=== PATIENT | female | born 1960 | race Caucasian/White ===

== ENCOUNTER → 2020-05-09 14:27 | Outpatient (BNVA) | payer MEDICAID, SELFPAY | PROVIDERS: PCP Nurse Practitioner Family; Visit Provider Physician Assistant | DX: A04.8 Other specified bacterial intestinal infections (principal) | CPT/HCPCS: 99213 ==

== ENCOUNTER 2020-05-24 12:31 | Outpatient (REF) | payer MEDICAID, SELFPAY ==
--- NOTE | 2020-05-24 13:08 | XR_ITS ---
EXAMINATION: XR WRIST, LEFT CLINICAL INFORMATION: Pain left wrist. COMPARISON: None TECHNIQUE: Single lateral view of the left wrist. FINDINGS: There is old ulnar styloid process fracture. There is no dislocation or subluxation seen involving the left wrist. The soft tissues are normal. XR/XR wrist LT 2V IMPRESSION: Old ulnar styloid process fracture. No acute dislocation or subluxation seen.
== END 2020-05-24 12:32 | disposition home or self-care (01) ==
LOC: HO.HOSX 12:31
PROVIDERS: PCP Nurse Practitioner Family; Visit Provider Orthopaedic Surgery
DX: M65.832 Other synovitis and tenosynovitis, left forearm (principal); M25.532 Pain in left wrist
CPT/HCPCS: 20551; 73100; 99212; J1100

== ENCOUNTER 2020-09-12 12:27 | Outpatient (REF) | payer MEDICAID, SELFPAY ==
--- NOTE | ~2020-09-12 | MM_ITS ---
EXAMINATION: MM SCREENING DIGITAL BREAST TOMOSYNTHESIS, BILATERAL CLINICAL INFORMATION: Screening. Asymptomatic. Family history breast cancer, sister. Prior outside mammography from [place], [place] currently unavailable. The lifetime risk of breast cancer based on the Tyrer-Cuzick Model is 20.1%. COMPARISON: None. TECHNIQUE: Digital breast tomosynthesis is performed in both the craniocaudal and mediolateral oblique views along with computer-aided detection (CAD). Synthesized 2D images are generated from the tomosynthesis. FINDINGS: The breasts are heterogeneously dense, which may obscure small masses (ACR BI-RADS breast composition Category c). There is no significant mass or architectural abnormality. Innumerable bilateral punctate round calcifications are distributed throughout both breasts, slightly greater in number on the right. The axilla are unremarkable. The skin contours are smooth. Radiology department staff will attempt to retrieve prior outside mammography to allow for comparison in an addendum report. MM/MM tomosynthesis screening BI IMPRESSION: No mammographic evidence of malignancy. ASSESSMENT: BI-RADS 0: Incomplete - pending prior outside mammography for comparison RECOMMENDATION: 1. Radiology department staff will attempt to retrieve outside prior exam(s) to allow for comparison in an addendum report. 2. The lifetime risk of breast cancer based on the Tyrer-Cuzick Model is 20.1%. Additional annual adjunct screening with breast MRI may be of benefit in women with a risk score of 20% or greater. This patient's information was entered into a reminder system with a target due date for their next mammogram.
== END 2020-09-12 12:28 | disposition home or self-care (01) ==
LOC: HO.MAMMO 12:27
PROVIDERS: PCP Nurse Practitioner Family; Visit Provider Nurse Practitioner Family
DX: Z12.31 Encounter for screening mammogram for malignant neoplasm of breast (principal)
CPT/HCPCS: 77063; 77067

== ENCOUNTER 2020-12-09 11:51 | Emergency (ER) | payer MEDICAID, SELFPAY ==
[2020-12-09 14:04] VITALS: BP 130/88; PULSE 87; RESP 20; TEMP 36.6; O2SAT 100; BMI 25.7
--- NOTE | 2020-12-09 14:06 | ED_ITS ---
HPI - General Adult General Chief complaint: ETOH/Substance Use Stated complaint: withdrawal Time Seen by Provider: 12/09/20 14:06 Source: patient Mode of arrival: ambulatory Limitations: no limitations History of Present Illness HPI narrative: 60 y/o female with history of substance abuse on Suboxone x10 years with recent relapse 4 days ago presenting with restless legs. She states her legs were moving so much last night she could not sleep at all. She has not used heroin. She tried taking a half dose of Subxone yesterday but felt worse. She did not take her Soboxone today. She reports some muscle cramping in her legs and feeling like she can't stop moving them. She has no swelling, no injury, no skin changes. No fever Related Data Home Medications Medication Instructions Recorded Confirmed abacavir 600 mg-dolutegravir 50 1 tab PO DAILY 05/09/20 05/09/20 mg-lamivudine 300 mg tablet levothyroxine 150 mcg tablet 150 mcg PO DAILY 05/09/20 05/09/20 lisinopril 20 mg tablet 20 mg PO DAILY 05/09/20 05/09/20 metformin 500 mg tablet 500 mg PO DAILY 05/09/20 05/09/20 simvastatin 40 mg tablet 40 mg PO DAILY 05/09/20 05/09/20 Previous Rx's Medication Instructions Recorded arm brace #1 ea 05/31/20 diphenhydramine HCl [Benadryl 50 mg PO Q6H PRN #14 tab 12/09/20 Allergy] Allergies Allergy/AdvReac Type Severity Reaction Status Date / Time No Known Allergies Allergy Verified 12/09/20 14:04 Review of Systems Review of Systems: Constitutional: No Fever, No Chills ENT/Mouth: No sore throat, No Rhinorrhea, No Swallowing Difficulty Cardiovascular: No Chest Pain, No SOB Respiratory: No Cough, No Sputum Gastrointestinal: No Nausea, No Vomiting, No Diarrhea, No abdominal Pain Musculoskeletal: No joint pain, No Myalgias Skin: No Skin Lesions, No rash Neuro: No Weakness, No Numbness, No Dizziness, No Headache Psych: + Anxiety/Panic, + Depression Heme/Lymph: No Bruising, No Lymphadenopathy Endocrine: No Polyuria, No Polydipsia PMFSH Past Medical History Attestation statement: The following information was validated with the patient. Medical History Diabetes Dyslipidemia H. pylori infection HIV (human immunodeficiency virus infection) HTN (hypertension) Family History Family History (Updated 05/09/20 @ 14:03 by Mirela Aguilar PA-C) Brother No problems noted. Social History Social History (Updated 05/24/20 @ 12:38 by Jess Camara CMA) Patient : No Current occupational status: unemployed Current occupation: Right Handed Physical Exam Vital Signs: Vital Signs: Last Vital Signs Temp 97.9 F 12/09/20 14:04 Pulse 87 12/09/20 14:04 Resp 20 12/09/20 14:04 BP 130/88 12/09/20 14:04 Pulse Ox 100 12/09/20 14:04 Body Mass Index 25.7 Appearance: Alert. Oriented X3. No acute distress. Eyes: Pupils equal, round and reactive to light. ENT: Pharynx normal. Neck: Normal inspection. Neck supple. CVS: Normal heart rate and rhythm. Pulses normal. Respiratory: No respiratory distress. Breath sounds normal. Abdomen: Soft and nontender. +BS x4 Skin: Skin warm and dry. Normal skin color. Normal skin turgor. No rashes. Extremities: No lower extremity edema. No calf tenderness. No erythema, no skin changes. Neuro: Oriented X 3. No motor deficit. No sensory deficit. Ambulates with steady gait. Course Course Course Narrative: 60 y/o female with history of DM, HTN, substance abuse on Suboxone x10 years and recent relapse 4 days ago (use 1 bag) presenting with LE jumping sensation and cramping. Could not sleep due to the movement in her legs. Tried to take Suboxone yesterday but got sick. Did not take today. Will ge t labs to r/o electrolyte abnormalities. Reevaluation(s) Reevaluation #1: Labs normal. Patient encouraged to take her Suboxone at home and follow up with her PCP. Declining need for detox saying she just used once and does not plan to use again. Asking for Rx for benadryl for sleep and restless legs. Stable for discharge. Medical Decision Making Lab Data Result diagrams: 12/09/20 15:37 12/09/20 15:37 Labs: Lab Results 12/09/20 12/09/20 Range/Units 15:37 15:37 WBC 8.8 (4.8-10.8) X10*3/uL RBC 3.95 L (4.20-5.50) X10*6/uL Hgb 13.4 (12.0-16.0) g/dl Hct 39.5 (37-47) % MCV 100.0 H (80-98) fL MCH 33.9 H (27.0-33.0) pg MCHC 33.9 (31.0-35.0) g/dl RDW 14.4 (11.0-16.0) % Plt Count 223 (160-400) X10*3/uL MPV 10.3 (9.4-12.3) fL Immature Gran % (Auto) 0.8 H (0.0-0.4) % Neut % (Auto) 56.5 (45-73) % Lymph % (Auto) 32.8 (20-40) % [place] % (Auto) 6.7 (2-11) % Eos % (Auto) 2.4 (0-4) % Baso % (Auto) 0.8 (0-2) % Lymph # (Auto) 2.9 (1.2-4.9) X10*3/uL [place] # (Auto) 0.6 (0.1-1.2) X10*3/uL Eos # (Auto) 0.2 (0.0-0.4) X10*3/uL Baso # (Auto) 0.1 (0.0-0.2) X10*3/uL Abs Immat Gran (auto) 0.07 H (0.00-0.03) X10*3/uL Absolute Neuts (auto) 5.0 (2.0-8.3) X10*3/uL Absolute Nucleated RBC 0.000 (0.0-0.012) X10*3/uL Nucleated RBC % (auto) 0.0 (0.0-0.2) /100WBC Sodium 141 (135-145) mmol/L Potassium 4.0 (3.3-5.1) mmol/L Chloride 108 (96-108) mmol/L Carbon Dioxide 25 (22-29) mmol/L Anion Gap 12 (12-20) BUN 9 (9-16) mg/dL Creatinine 0.99 (0.5-1.4) mg/dL Estim Creat Clear Calc 50.2 Estimated GFR 57 Random Glucose 98 (60-115) mg/dL Calcium 9.1 (8.4-10.2) mg/dL Magnesium 2.4 (1.6-2.6) mg/dL TSH 52.59 H (0.32-4.0) uIU/mL Critical Care Time Critical Care Time Critical Care Time: No Discharge Plan Discharge Clinical Impression: Restless legs Patient Disposition: Home, Self-Care Instructions: Narcotic Withdrawal (ED) Additional Instructions: Your lab workup today was normal. Recommend going home and taking your Suboxone HARSHAL. Rest and stay hydrated. Restless legs can be a symptom of opiate withdrawal. Follow up with your doctor this week. Take Benadryl as needed for sleep. Prescriptions: New diphenhydramine HCl [Benadryl Allergy] 25 mg tablet 50 mg PO Q6H PRN (Reason: allergy symptoms) Qty: 14 RF: 0 No Action lisinopril 20 mg tablet 20 mg PO DAILY RF: 0 metformin 500 mg tablet 500 mg PO DAILY RF: 0 simvastatin 40 mg tablet 40 mg PO DAILY RF: 0 Triumeq 600-50-300 mg tablet 1 tab PO DAILY RF: 0 levothyroxine 150 mcg tablet 150 mcg PO DAILY RF: 0 (DME) Wrist Brace Misc See Rx Instructions .ROUTE .MEDSUPPLY Qty: 1 RF: 0
[2020-12-09 15:44] LABS: Basophils Absolute Auto 0.1 X10*3/uL (0.0-0.2); Basophils Percent Auto 0.8 % (0-2); Eosinophils Absolute Auto 0.2 X10*3/uL (0.0-0.4); Eosinophils Percent Auto 2.4 % (0-4); Hematocrit 39.5 % (37-47); Hemoglobin 13.4 g/dl (12.0-16.0); Imm Gran Abs Auto 0.07 X10*3/uL (0.00-0.03); Imm Gran Pct Auto 0.8 % (0.0-0.4); Lymphocytes Absolute Auto 2.9 X10*3/uL (1.2-4.9); Lymphocytes Percent Auto 32.8 % (20-40); MANUAL DIFF FLAG NO; Mean Corpuscular HGB Conc 33.9 g/dl (31.0-35.0); Mean Corpuscular Hemoglobin 33.9 pg (27.0-33.0); Mean Platelet Volume 10.3 fL (9.4-12.3); Monocytes Absolute Auto 0.6 X10*3/uL (0.1-1.2); Monocytes Percent Auto 6.7 % (2-11); Neutrophils Percent Auto 56.5 % (45-73); Platelet Count 223 X10*3/uL (160-400); Red Blood Count 3.95 X10*6/uL (4.20-5.50); Red Cell Distribution Width 14.4 % (11.0-16.0); White Blood Count 8.8 X10*3/uL (4.8-10.8)
[2020-12-09 16:10] LABS: Anion Gap 12 (12-20); Blood Urea Nitrogen 9 mg/dL (9-16); Calcium 9.1 mg/dL (8.4-10.2); Carbon Dioxide 25 mmol/L (22-29); Chloride 108 mmol/L (96-108); Creatinine Clr Calc Pharmacy 50.2; Estimated Glomerular Filt Rate 57; Glucose Random 98 mg/dL (60-115); Magnesium 2.4 mg/dL (1.6-2.6); Sodium 141 mmol/L (135-145)
[2020-12-09 16:30] LABS: TSH reflex Free T4 52.59 uIU/mL (0.32-4.0)
[2020-12-09 17:04] LABS: Free T4 (Free Thyroxine) < 0.40 ng/dL (0.71-1.85)
--- NOTE | 2020-12-09 19:12 | PC.NURSE ---
GLYNN LONG, STATING THAT PATIENT ELOPED FROM EMERGENCY DEPARTMENT
== END 2020-12-09 19:12 | disposition left against medical advice (07) ==
LOC: HO.ED 19:10
PROVIDERS: Physician Assistant; Emergency Provider Emergency Medicine; PCP Nurse Practitioner Family
DX: F10.139 Alcohol abuse with withdrawal, unspecified (principal); G25.81 Restless legs syndrome; Z79.899 Other long term (current) drug therapy
CPT/HCPCS: 36415; 80048; 83735; 84439; 84443; 85025; 99282

== ENCOUNTER 2021-03-29 16:34 | Emergency (ER) | payer MEDICAID, SELFPAY ==
[2021-03-29 17:11] VITALS: BP 148/77; PULSE 80; RESP 16; TEMP 36.6; O2SAT 98; BMI 27.9
--- NOTE | 2021-03-29 19:48 | ED.OVERDOSE ---
HPI - Overdose General Chief Complaint: Body Fluid Exposure Stated Complaint: detox Source: patient Mode of arrival: ambulatory Limitations: no limitations History of Present Illness HPI Narrative: 60-year-old female presents for heroin detox. Stated that she has been sober for 14 years and had a relapse. She is very remorseful and is looking for assistance. Context: Accidental Overdose: wanted to get high Treatments Prior to Arrival: none Related Data Home Medications Medication Instructions Recorded Confirmed abacavir 600 mg-dolutegravir 50 1 tab PO DAILY 05/09/20 05/09/20 mg-lamivudine 300 mg tablet (Triumeq) levothyroxine 150 mcg tablet 150 mcg PO DAILY 05/09/20 05/09/20 lisinopril 20 mg tablet 20 mg PO DAILY 05/09/20 05/09/20 metformin 500 mg tablet 500 mg PO DAILY 05/09/20 05/09/20 simvastatin 40 mg tablet 40 mg PO DAILY 05/09/20 05/09/20 Previous Rx's Medication Instructions Recorded arm brace (Wrist Brace) #1 ea 05/31/20 diphenhydramine HCl 25 mg tablet 50 mg PO Q6H PRN #14 tab 12/09/20 (Benadryl Allergy) Allergies Allergy/AdvReac Type Severity Reaction Status Date / Time No Known Allergies Allergy Verified 12/09/20 14:04 Review of Systems Review of Systems: Constitutional: No Fever, No Chills ENT/Mouth: No sore throat, No Rhinorrhea Eyes: No Eye Pain, No Swelling, No Redness Cardiovascular: No Chest Pain, No SOB Respiratory: No Cough, No Sputum Gastrointestinal: No Nausea, No Vomiting, No Diarrhea, No abdominal Pain Genitourinary: No Dysuria, No Hematuria Musculoskeletal: No joint pain, No Myalgias, No Joint Swelling Skin: No Skin Lesions, No rash Neuro: No Weakness, No Numbness, No Loss of Consciousness, No Dizziness, No Headache Psych: Positive heroin relapse, Positive Anxiety, positive Depression, No SI/HI/AH/VH Heme/Lymph: No Bruising, No Bleeding,No Lymphadenopathy Endocrine: No Polyuria, No Polydipsia Yes all other systems are reviewed and are negative PMFSH Past Medical History Attestation statement: The following information was validated with the patient. Source: old records reviewed Medical History Diabetes Dyslipidemia H. pylori infection HIV (human immunodeficiency virus infection) HTN (hypertension) Family History Family History Brother No problems noted. Social History Social History Advance Directives: No Current occupational status: unemployed Current occupation: Right Handed Physical Exam Vital Signs: Vital Signs: Last Vital Signs Temp 98.9 F 03/29/21 21:04 Pulse 77 03/29/21 21:04 Resp 16 03/29/21 21:04 BP 140/85 H 03/29/21 21:04 Pulse Ox 98 03/29/21 21:04 Body Mass Index 27.9 Appearance: Alert. Oriented X3. No acute distress. Eyes: Pupils equal, round and reactive to light. ENT: Pharynx normal. Neck: Normal inspection. Neck supple. CVS: Normal heart rate and rhythm. Pulses normal. Respiratory: No respiratory distress. Breath sounds normal. Abdomen: Soft and nontender. Skin: Skin warm and dry. Normal skin color. Normal skin turgor. Extremities: No lower extremity edema. Gait well-balanced well coordinated. Neuro: No motor deficit. No sensory deficit. Cranial nerves 2-12 intact. Course Course Course Narrative: 60-year-old female relapse on heroin after 14 years of sobriety. Is requesting detox care team consult pending. Care team consult complete, plan is for detox in the morning. Patient verbalized understanding of and agrees to plan. MDM - Overdose MDM Narrative Medical decision making narrative: Heroin abuse, requesting detox Medical Records Attestation: I reviewed the patient's medical records. Discharge Plan Discharge Clinical Impression: Heroin abuse Patient Disposition: Home, Self-Care Instructions: Opioid Use Disorder (ED) Additional Instructions: Thank you for choosing detox. Thank you for choosing this emergency department for evaluation. Please follow-up with primary care physician as needed. Return to the emergency department for any new, concerning, or worsening symptoms. Prescriptions: No Action diphenhydramine HCl [Benadryl Allergy] 25 mg tablet 50 mg PO Q6H PRN (Reason: allergy symptoms) Qty: 14 RF: 0 lisinopril 20 mg tablet 20 mg PO DAILY RF: 0 metformin 500 mg tablet 500 mg PO DAILY RF: 0 simvastatin 40 mg tablet 40 mg PO DAILY RF: 0 Triumeq 600-50-300 mg tablet 1 tab PO DAILY RF: 0 levothyroxine 150 mcg tablet 150 mcg PO DAILY RF: 0 (DME) Wrist Brace Misc See Rx Instructions .ROUTE .MEDSUPPLY Qty: 1 RF: 0
--- NOTE | 2021-03-29 20:54 | MHC.CARE ---
CARE Team was consulted to meet with patient about detox options. CARE Team met with the patient with Mario as the breeding manager and the patient explained that she had been clean for more than 10 years before her recent relapse and expressed her determination to get help. Patient said that she was scared to detox at home by herself and felt she would be more successful if she were in a detox facility. CARE Team informed her that [facility] and that tomorrow the recovery team would be able to help connect her to detox resources. After speaking with the ED providers, it was determined that the patient could stay in the ED to meet with the recovery team.
[2021-03-29 21:04] VITALS: BP 140/85; PULSE 77; RESP 16; TEMP 37.2; O2SAT 98
[2021-03-30 03:04] VITALS: RESP 16
[2021-03-30 06:22] VITALS: RESP 16
--- NOTE | 2021-03-30 08:37 | PC.NURSE ---
sean to bedside to discuss detox- pt breakfast ordered
[2021-03-30 08:47] LABS: Glucose, Whole Blood 105 mg/dL (60-115)
--- NOTE | 2021-03-30 08:49 | MHC.RECOVSUP ---
Recovery Support note: Patient is a 60 year old [place] speaking female who presented to [facility] on 03/29 seeking detox. Patient reports relapsing on heroin and a desire to get into treatment. This health technical writer met with patient on 03/30 to discuss her substance use and treatment options. Patient reports she last used on 03/29 and that she is feeling withdrawal symptoms at this time. Patient reports she has never been to detox. Patient reports she does not want to go far for treatment. This health technical writer will assist patient in conducting a local ATS bedsearch. Discussed case with patient's RN.
--- NOTE | 2021-03-30 10:17 | MHC.RECOVSUP ---
Recovery Support note: Patient has been referred to [facility] and is being reviewed for possible admission. Patient reports she is fully vaccinated for COVID. Patient reports she relapsed in December and has been using 15 bags of heroin a day, nasally. Discussed case with patient's RN and ED provider.
[2021-03-30 10:41] VITALS: BP 140/85; PULSE 77
[2021-03-30] MEDS: Levothyroxine Sodium 75 MCG TABLET PO (10:41)
[2021-03-30] MEDS: lisinopriL 10 MG TABLET PO (10:41)
[2021-03-30] MEDS: Cholecalciferol (Vitamin D3) 25 MCG TABLET PO (10:41)
[2021-03-30] MEDS: Famotidine 20 MG TABLET PO (10:41)
[2021-03-30 11:10] LABS: COVID-19 Test Negative (Negative); IDNOW Serial# 9DD0AD1C
--- NOTE | 2021-03-30 11:20 | MHC.RECOVSUP ---
Recovery Support note: Patient has been accepted to [facility] for a 1500 admission time. Patient is requesting that [facility] assist with transportation. Patient medication list has been verified and faxed to [facility]. Patient confirms that she has all of her medications with her at this time. Patient is COVID negative and result has been faxed to [facility]. Discussed with patient that [facility] does not have an automotive parts interpreter today and patient reports that this is not a problem and that she will be able to talk in Green[place]ic.
--- NOTE | 2021-03-30 13:24 | PC.NURSE ---
pt eating lunch
--- NOTE | 2021-03-30 13:28 | PC.NURSE ---
per charge pt left er
== END 2021-03-30 13:38 | disposition home or self-care (01) ==
PROVIDERS: Physician Assistant Medical; Emergency Provider Emergency Medicine Emergency Medical Services
DX: T40.1X1A Poisoning by heroin, accidental (unintentional), initial encounter (principal); Y92.9 Unspecified place or not applicable; F11.10 Opioid abuse, uncomplicated; Z20.822 Contact with and (suspected) exposure to COVID-19; Z71.51 Drug abuse counseling and surveillance of drug abuser; Z79.899 Other long term (current) drug therapy
CPT/HCPCS: 36415; 82947; 87635; 99284

== ENCOUNTER 2021-05-07 13:37 | Outpatient (REF) | payer MEDICAID, SELFPAY | END 2021-05-07 13:38 | disposition home or self-care (01) | LOC: HO.LAB 13:37 | PROVIDERS: Visit Provider Internal Medicine | DX: Z20.822 Contact with and (suspected) exposure to COVID-19 (principal) | CPT/HCPCS: C9803; U0003; U0005 ==

== ENCOUNTER 2022-01-10 15:56 | Emergency (ER) | payer MEDICAID, SELFPAY ==
[2022-01-10 16:01] VITALS: BP 112/60; BP 116/80; PULSE 81; PULSE 90; RESP 15; TEMP 36.1; O2SAT 97; O2SAT 98; BMI 30.8
[2022-01-10 16:30] LABS: Appearance Urine CLEAR; Color Urine YELLOW; Glucose Urine UA NEG (NEG); Leukocyte Esterase Urine NEG (NEG); Nitrite Urine NEG (NEG); Specific Gravity - Urine >= 1.030 (1.005-1.025); Urine Blood NEG (NEG); Urine Ketones 5 MG/DL (NEG); Urine Protein TRACE MG/DL (NEG-TRACE)
[2022-01-10 17:11] LABS: MANUAL DIFF FLAG NO
[2022-01-10 17:25] LABS: Basophils Absolute Auto 0.1 X10*3/uL (0.0-0.2); Basophils Percent Auto 0.6 % (0-2); Eosinophils Absolute Auto 0.5 X10*3/uL (0.0-0.4); Eosinophils Percent Auto 5.8 % (0-4); Hematocrit 39.1 % (37.0-47.0); Imm Gran Abs Auto 0.02 X10*3/uL (0.00-0.03); Imm Gran Pct Auto 0.3 % (0.0-0.4); Lymphocytes Absolute Auto 2.7 X10*3/uL (1.2-4.9); Lymphocytes Percent Auto 33.7 % (20-40); Mean Corpuscular HGB Conc 33.2 g/dl (31.0-35.0); Mean Corpuscular Hemoglobin 33.7 pg (27.0-33.0); Mean Corpuscular Volume 101.3 fL (80.0-98.0); Mean Platelet Volume 10.9 fL (9.4-12.3); Monocytes Absolute Auto 0.8 X10*3/uL (0.1-1.2); Monocytes Percent Auto 9.6 % (2-11); Platelet Count 288 X10*3/uL (160-400); Red Blood Count 3.86 X10*6/uL (4.20-5.50); Red Cell Distribution Width 14.5 % (11.0-16.0)
[2022-01-10 17:31] LABS: Alanine Aminotransferase 17 U/L (0-31); Albumin Level 4.8 g/dL (3.5-5.0); Alkaline Phosphatase 70 U/L (39-117); Anion Gap 11 (12-20); Aspartate Amino Transferase 16 U/L (5-31); Bilirubin Direct < 0.2 mg/dL (0.0-0.5); Bilirubin Total 0.4 mg/dL (0.0-1.0); Blood Urea Nitrogen 21 mg/dL (9-16); Calcium 9.9 mg/dL (8.4-10.2); Carbon Dioxide 28 mmol/L (22-29); Chloride 104 mmol/L (96-108); Creatinine Clr Calc Pharmacy 38.3; Estimated Glomerular Filt Rate 38; Glucose Random 101 mg/dL (60-115); Lipase 16 U/L (8-78); Potassium 4.9 mmol/L (3.3-5.1); Sodium 138 mmol/L (135-145); Total Protein 7.9 g/dL (6.5-8.0)
== END 2022-01-10 18:55 | disposition left against medical advice (07) ==
LOC: HO.ED 18:50
PROVIDERS: Emergency Medicine; Emergency Provider Emergency Medicine
DX: R10.9 Unspecified abdominal pain (principal); M54.50 Low back pain, unspecified; K59.00 Constipation, unspecified
CPT/HCPCS: 36415; 80048; 80076; 81003; 83690; 85025; 99282; 99283

== ENCOUNTER 2022-06-19 11:05 | Emergency (ER) | payer MEDICAID, SELFPAY ==
--- NOTE | ~2022-06-19 | XR_ITS ---
EXAMINATION: XR CHEST CLINICAL INFORMATION: Wheezing, rhonchi. COMPARISON: None TECHNIQUE: 2 views of the chest were obtained. FINDINGS: No significant abnormality is noted involving the heart, lungs, mediastinum, bony thorax or soft tissues. XR/XR chest 2V IMPRESSION: No acute cardiopulmonary process.
--- NOTE | 2022-06-19 11:17 | ED.OVERDOSE ---
HPI - Overdose General Chief Complaint: Overdose Stated Complaint: overdose Time Seen by Provider: 06/19/22 11:14 Source: patient and EMS Mode of arrival: EMS Limitations: no limitations History of Present Illness HPI Narrative: 61-year-old female with history of heroin use on methadone x1 month presents to the ER for evaluation of an overdose. She was found poorly responsive, face down in the bushes and was given Narcan with improvement in her mentation. She states she went to the methadone clinic, got her 40 mg of methadone and on the way back to the program smoked some weed. She does not recall what happened next. EMS reports she was able to get up out of the bushes but had pinpoint pupils and intermittent periods of apnea. IV established and she was given 0.5 IV Narcan wtih improvement in her mentation. She reports last IN heroin use 2 months ago. She completed a detox program. She is worried her weed was laced with something. MD complaint: accidental overdose Onset (ago): minute(s) Treatments Prior to Arrival: narcan Related Data Home Medications Medication Instructions Recorded Confirmed abacavir 600 mg-dolutegravir 50 1 tab PO BEDTIME 03/30/21 03/30/21 mg-lamivudine 300 mg tablet (Triumeq) amitriptyline 100 mg tablet 1 tab PO BEDTIME 03/30/21 03/30/21 ascorbic acid (vitamin C) 500 mg 1 tab PO DAILY 03/30/21 03/30/21 tablet (Vitamin C) cholecalciferol (vitamin D3) 25 25 mcg PO DAILY 03/30/21 03/30/21 mcg (1,000 unit) capsule (Vitamin D3) estradiol 0.075 mg/24 hr 1 patch topical MOTH 03/30/21 03/30/21 semiweekly transdermal patch famotidine 20 mg tablet 20 mg PO DAILY 03/30/21 03/30/21 levothyroxine 75 mcg tablet 75 mcg PO DAILY 03/30/21 03/30/21 (Synthroid) lisinopril 10 mg tablet 10 mg PO DAILY 03/30/21 03/30/21 melatonin 10 mg tablet 10 mg PO BEDTIME PRN Insomnia 03/30/21 03/30/21 pravastatin 40 mg tablet 40 mg PO DAILY 03/30/21 03/30/21 progesterone micronized 100 mg 1 cap PO BEDTIME 03/30/21 03/30/21 capsule trazodone 100 mg tablet 1 tab PO BEDTIME PRN Insomnia 03/30/21 03/30/21 Allergies Allergy/AdvReac Type Severity Reaction Status Date / Time No Known Allergies Allergy Verified 12/09/20 14:04 Review of Systems Review of Systems: Constitutional: No Fever, No Chills ENT/Mouth: No sore throat, No Rhinorrhea Cardiovascular: No Chest Pain, No SOB, No Orthopnea, No Edema Respiratory: + Cough, No Sputum, + Wheezing, No dyspnea Gastrointestinal: No Nausea, No Vomiting, No Diarrhea, No abdominal Pain Genitourinary: No Dysuria, No Urinary Frequency, No Hematuria Musculoskeletal: No joint pain, No Myalgias Skin: No Skin Lesions, No rash Neuro: No Weakness, No Numbness, No Dizziness, No Headache Psych: No Anxiety/Panic, No Depression, No SI Heme/Lymph: No Bruising, No Lymphadenopathy PMFSH Past Medical History Medical History Diabetes Dyslipidemia H. pylori infection HIV (human immunodeficiency virus infection) HTN (hypertension) Family History Family History Brother No problems noted. Social History Social History Alcohol intake: never Smoked in Last 30 Days: No Substance Use Type: Marijuana Advance Directives: No Current occupational status: unemployed Current occupation: Right Handed Physical Exam Vital Signs: Vital Signs: Last Vital Signs Temp 97.3 F 06/19/22 11:30 Pulse 86 06/19/22 11:30 Resp 17 06/19/22 11:30 BP 158/85 H 06/19/22 11:30 Pulse Ox 98 06/19/22 11:30 O2 Del Method 06/19/22 11:30 BMI result Body Mass Index 28.3 Appearance: Alert. Oriented X3. No acute distress. Head: normocephalic, atraumatic Eyes: Pupils equal, round and reactive to light. ENT: Pharynx normal. Neck: Normal inspection. Neck supple. No midline tenderness CVS: Normal heart rate and rhythm. Pulses normal. Respiratory: No respiratory distress. Breath sounds with scattered rhonchi and few scattered wheezes. Abdomen: Soft and nontender. +BS x4 Skin: Skin warm and dry. Normal skin color. Normal skin turgor. No rashes. Extremities: Normal inspection x4, atraumatic Neuro: Oriented X 3. No motor deficit. No sensory deficit. Steady gait Course Course Course Narrative: 61-year-old female with history of opioid use disorder on methadone presents to the ER for evaluation over overdose that responded to Narcan. Denies any heroin use but did smoke some marijuana from person in the park, question if it was laced or not. She is wanting to get a urinalysis done to look for fentanyl or heroin. She is up to the bathroom ambulating with steady gait. Given her lung sounds will check chest x-ray and viral swabs. She is breathing comfortably, saturating well. Reevaluation(s) Reevaluation #1: Chest x-ray is clear. Negative for COVID and flu. Urinalysis still pending. Reevaluation #2: U tox positive for fentanyl, opiates, marijuana. Patient is awake and alert after 2 hours of observation in the ER. Complete discharge home. She is adamant that she did not use intentionally and it was laced in the marijuana that she smoked. She is on methadone maintenance and just completed a detox program. Counseled on abstaining from illegal drugs and continuing her methadone as prescribed. Complete discharge home, will give intranasal Narcan to go. MDM - Overdose Lab Data Labs: Lab Results 06/19/22 06/19/22 06/19/22 Range/Units 11:44 11:44 13:02 Urine Color Urine Appearance Urine pH (5.0-9.0) Ur Specific [place] (1.005-1.025) Urine Protein (Neg-Trace) mg/dL Urine Glucose (UA) (Negative) mg/dL Urine Ketones (Negative) mg/dL Urine Blood (Negative) Urine Nitrite (Negative) Ur Leukocyte Esterase (Negative) Urine Opiates Screen POSITIVE H (Not Detect) Urine Fentanyl Screen POSITIVE H (Not Detect) Ur Barbiturates Screen Not Detected (Not Detect) Ur Phencyclidine Scrn Not Detected (Not Detect) Ur Amphetamines Screen Not Detected (Not Detect) U Benzodiazepines Scrn Not Detected (Not Detect) Urine Cocaine Screen Not Detected (Not Detect) U Marijuana (THC) Screen POSITIVE H (Not Detect) COVID-19 (VENU) Negative (Negative) COVID-19 Clin Com See Note Influenza Type A (KRYSTAL) Negative (Negative) Influenza Type B (KRYSTAL) Negative (Negative) Influenza A & B Note See Note 06/19/22 Range/Units 13:02 Urine Color Yellow Urine Appearance Clear Urine pH 6.0 (5.0-9.0) Ur Specific [place] 1.020 (1.005-1.025) Urine Protein Negative (Neg-Trace) mg/dL Urine Glucose (UA) Negative (Negative) mg/dL Urine Ketones Negative (Negative) mg/dL Urine Blood Negative (Negative) Urine Nitrite Negative (Negative) Ur Leukocyte Esterase Small (1+) H (Negative) Urine Opiates Screen (Not Detect) Urine Fentanyl Screen (Not Detect) Ur Barbiturates Screen (Not Detect) Ur Phencyclidine Scrn (Not Detect) Ur Amphetamines Screen (Not Detect) U Benzodiazepines Scrn (Not Detect) Urine Cocaine Screen (Not Detect) U Marijuana (THC) Screen (Not Detect) COVID-19 (VENU) (Negative) COVID-19 Clin Com Influenza Type A (KRYSTAL) (Negative) Influenza Type B (KRYSTAL) (Negative) Influenza A & B Note Discharge Plan Discharge Clinical Impression: Drug overdose Patient Disposition: Home, Self-Care Instructions: Adult Overdose (ED) Additional Instructions: Your urine toxicology tested positive for opiates, fentanyl, marijuana. You required Narcan for opiate overdose today. Do not use any opiates or heroin. They kink OU. Continue your methadone. Your chest x-ray was normal today. You tested negative for COVID and flu. Continue to use your albuterol inhaler as needed. Follow-up with your doctor. If you develop new or worsening symptoms call 911 or come back to the ER for further evaluation. Prescriptions: No Action pravastatin 40 mg Tablet 40 mg PO DAILY levothyroxine [Synthroid] 75 mcg Tablet 75 mcg PO DAILY famotidine 20 mg Tablet 20 mg PO DAILY lisinopril 10 mg Tablet 10 mg PO DAILY cholecalciferol (vitamin D3) [Vitamin D3] 25 mcg (1,000 unit) Capsule 25 mcg PO DAILY estradiol 0.075 mg/24 hr patch semiweekly 1 patch topical MOTH ascorbic acid (vitamin C) [Vitamin C] 500 mg tablet 1 tab PO DAILY trazodone 100 mg tablet 1 tab PO BEDTIME PRN (Reason: Insomnia) amitriptyline 100 mg tablet 1 tab PO BEDTIME melatonin 10 mg Tablet 10 mg PO BEDTIME PRN (Reason: Insomnia) Triumeq 600-50-300 mg tablet 1 tab PO BEDTIME progesterone micronized 100 mg capsule 1 cap PO BEDTIME Interventions: Harrison-Suicide Risk Severity Scale Last Done: 06/19/22 12:54
[2022-06-19 11:30] VITALS: BP 126/72; BP 158/85; PULSE 80; PULSE 86; RESP 17; TEMP 36.3; O2SAT 98; BMI 28.3
--- OUTSIDE RECORDS SUMMARY | 2022-06-19 11:52 | XMS_ITS | Continuity of Care Document ---
:1960 Author Organization [facility] Address [address] [place] [phone]- Care Team Providers Name Role Phone Leobardo HERNANDEZ, Fabiana Primary Care Physician [id number] Date(s): 01/04/20 - 02/05/20 [facility] [address] [place] [phone] [facility] Attending Physician: Princess Mir MD Referring Physician: Krista Gray MD, V Allergies, Adverse Reactions, Alerts Substance Reaction Severity Status NKA Active Medications amitriptyline 100 mg oral tablet 1 tablet = 100 mg, By Mouth, Daily at bedtime, 0 Refills, Maintenance, 01/06/20 10:41:00 EDT Start Date: 01/06/20 Status: Orderedestradiol 0.1 mg/24 hours twice weekly transdermal film, extended release 1 patch, Topically, 0 Refills, Maintenance, 01/06/20 10:43:00 EDT Start Date: 01/06/20 Status: OrderedLevothyroxine Tablet = 105 mcg, By Mouth, Daily, # 30 tablet, 2 Refills, 10/27/07 9:35:01 EDT Start Date: 10/27/07 Status: Orderedlisinopril 10 mg oral tablet 10 mg, 1, tablet, By Mouth, Daily, Refills 0, Maintenance, 01/06/20 10:40:00 EDT Start Date: 01/06/20 Status: Orderedprogesterone 100 mg oral capsule 2 capsule = 200 mg, By Mouth, Daily at bedtime, 0 Refills, Maintenance, 01/06/20 10:42:00 EDT Start Date: 01/06/20 Status: OrderedSuboxone 8 mg-2 mg Sublingual Film Sublingual, Daily, 0 Refills, Maintenance, 01/06/20 10:41:00 EDT Start Date: 01/06/20 Status: OrderedtraZODone 100 mg oral tablet 100 mg, 1, tablet, By Mouth, 2 times a day, Refills 0, Maintenance, 01/06/20 10:40:00 EDT Start Date: 01/06/20 Status: Ordered Vital Signs Most recent to oldest [Reference Range]: 1 Height 154.90 cm (01/06/20 10:27 AM)
--- OUTSIDE RECORDS SUMMARY | 2022-06-19 11:52 | XMS_ITS | Continuity of Care Document ---
:1960 Author Organization [facility] Address [address] [place] [address], 4th Floor [address] [place] [address]- Care Team Providers Name Role Phone Leobardo HERNANDEZ, Fabiana Primary Care Physician Encounter [facility] [place] Date(s): 06/12/20 - 07/12/20 [facility] [address] [facility], 4th Floor [address] [place] [address] Attending Physician: Petty Daniel Admitting Physician: Petty Daniel Referring Physician: Petty Daniel Allergies, Adverse Reactions, Alerts Substance Reaction Severity Status NKA Active Medications amitriptyline 100 mg oral tablet 1 tablet = 100 mg, By Mouth, Daily at bedtime, 0 Refills, Maintenance, 01/06/20 10:41:00 EDT Start Date: 01/06/20 Status: Orderedestradiol 0.075 mg/24 hours twice weekly transdermal film, extended release 1 patch, Topically, Every Thursday and , # 9 patch, 11 Refills, Maintenance, 02/16/20 23:49:00EDT, [facility] #[id number], 154.9, cm, 02/03/20 13:08:00 EDT, Height Start Date: 02/16/20 Status: Orderedestradiol 0.1 mg/24 hours twice weekly [...] 200 mg, By Mouth, Daily at bedtime, # 60 capsule, 11 Refills, Maintenance, 02/16/20 23:50:00 EDT, [facility] #[id number], 154.9, cm, 02/03/20 13:08:00 EDT, Height Start Date: 02/16/20 Status: Orderedprogesterone 100 mg oral capsule 2 [...] 10:40:00 EDT Start Date: 01/06/20 Status: Ordered Social History Social History Type Response Smoking Status Never (less than 100 in life time) entered on: 02/16/20 Sex
--- OUTSIDE RECORDS SUMMARY | 2022-06-19 11:52 | XMS_ITS | Continuity of Care Document ---
:1960 Author Organization [facility] Address Unavailable , Care Team Providers Name Role Phone Leobardo HERNANDEZ, Fabiana Primary Care Physician [place] [facility] [place]/21[place]21 - 06/20/21 [facility] Attending Physician: Petty Daniel Admitting Physician: Petty Daniel Referring Physician: AdmtrPetty Allergies, Adverse Reactions, Alerts Substance Reaction Severity Status NKA Active Medications amitriptyline 100 mg oral tablet 1 tablet = 100 mg, By Mouth, Daily at bedtime, 0 Refills, Maintenance, 01/06/20 10:41:00 EDT Start Date: 01/06/20 Status: Orderedestradiol 0.075 mg/24 hours twice weekly transdermal film, extended release 1 patch, Topically, Every Thursday and , # 9 patch, 11 Refills, Maintenance, 02/16/20 23:49:00EDT, [facility] #[id number], 154.9, cm, 02/03/20 13:08:00 EDT, Height Start [...] capsule, 11 Refills, Maintenance, 02/16/20 23:50:00 EDT, [facility][id number], 154.9, cm, 02/03/20 13:08:00 EDT, Height Start [...]
--- OUTSIDE RECORDS SUMMARY | 2022-06-19 11:52 | XMS_ITS | Continuity of Care Document ---
:1960 Author Organization [facility] Address Unavailable , Care Team Providers Name Role Phone Leobardo HERNANDEZ, Fabiana Primary Care Physician En[place] [facility] [place] Date(s): 05/06/21 - 06/05/21 [facility] Allergies, Adverse Reactions, Alerts Substance Reaction Severity Status NKA Active Medications amitriptyline 100 mg oral tablet 1 tablet = 100 mg, By Mouth, Daily at bedtime, 0 Refills, Maintenance, 01/06/20 10:41:00 EDT Start Date: 01/06/20 Status: Orderedestradiol 0.075 mg/24 hours twice weekly transdermal film, extended release 1 patch, Topically, Every Thursday and , # 9 patch, 11 Refills, Maintenance, 02/16/20 23:49:00EDT, [facility] #[id number], 154.9, cm, 02/03/20 13:08:00 EDT, Height Start [...] capsule, 11 Refills, Maintenance, 02/16/20 23:50:00 EDT, [facility] #[id number], 154.9, cm, 02/03/20 13:08:00 EDT, Height Start [...]
--- OUTSIDE RECORDS SUMMARY | 2022-06-19 11:52 | XMS_ITS | Continuity of Care Document ---
:1960 Author Organization [facility] Address [address] [facility], 4th Floor [address] [place] [address]- Care Team Providers Name Role Phone Leobardo HERNANDEZ, Fabiana Primary Care Physician En[place] [facility] [place] Date(s): 06/08/20 - 07/08/20 [facility] [address] [facility], 4th Floor [address] [place] [address] Allergies, Adverse Reactions, Alerts Substance Reaction Severity Status NKA Active Medications amitriptyline 100 mg oral tablet 1 tablet = 100 mg, By Mouth, Daily at bedtime, 0 Refills, Maintenance, 01/06/20 10:41:00 EDT Start Date: 01/06/20 Status: Orderedestradiol 0.075 mg/24 hours twice weekly transdermal film, extended release 1 patch, Topically, Every Thursday and , # 9 patch, 11 Refills, Maintenance, 02/16/20 23:49:00EDT, [facility] #[id number], 154.9, cm, 02/03/20 13:08:00 EDT, Height Start [...] capsule, 11 Refills, Maintenance, 02/16/20 23:50:00 EDT, [facility] #[id number], 154.9, cm, 02/03/20 13:08:00 EDT, Height Start [...]
--- OUTSIDE RECORDS SUMMARY | 2022-06-19 11:53 | XMS_ITS | Continuity of Care Document ---
:1960 Author Organization [facility] Address [address] [facility], 4th Floor [address] [place] [address]- Care Team Providers Name Role Phone Leobardo HERNANDEZ, Fabiana Primary Care Physician Encounter [facility] [place] Date(s): 02/03/20 - 03/04/20 [facility] [address] [facility], 4th Floor [address] [place] [address]- [facility] Attending Physician: Petty Daniel Admitting Physician: Petty [...] 9 patch, 11 Refills, Maintenance, 02/16/20 23:49:00EDT, [facility] #[id number], 154.9, cm, 02/03/20 13:08:00 EDT, Height Start Date: 02/16/20 Status: Orderedestradiol 0.1 mg/24 hours twice weekly transdermal film, extended release 1 patch, Topically, 0 Refills, Maintenance, 01/06/20 10:43:00 EDT Start Date: 01/06/20 Status: OrderedLevothyroxine Tablet = 105 mcg, By Mouth, Daily, # 30 tablet, 2 Refills, 10/27/07 9:35:01 EDT Start Date: 4/9/08 Status: Orderedlisinopril 10 mg oral tablet 10 mg, 1, tablet, By Mouth, Daily, Refills 0, Maintenance, 01/06/20 10:40:00 EDT Start Date: 01/06/20 Status: Orderedprogesterone 100 mg oral capsule 2 capsule = 200 mg, By Mouth, Daily at bedtime, 0 Refills, Maintenance, 01/06/20 10:42:00 EDT Start Date: 01/06/20 Status: Orderedprogesterone 100 mg oral capsule 2 capsule = 200 mg, By Mouth, Daily at bedtime, # 60 capsule, 11 Refills, Maintenance, 02/16/20 23:50:00 EDT, [facility] #[id number], 154.9, cm, 02/03/20 13:08:00 EDT, Height Start Date: 02/16/20 Status: OrderedSuboxone 8 mg-2 mg Sublingual Film [...]
--- OUTSIDE RECORDS SUMMARY | 2022-06-19 11:53 | XMS_ITS | Continuity of Care Document ---
:1960 Author Organization [facility] Address Unavailable , Care Team Providers Name Role Phone Leobardo HERNANDEZ, Fabiana Primary Care Physician Encounter [facility] [place] Date(s): 05/06/21 - 06/20/21 [facility] Attending Physician: Princess Mir MD Allergies, Adverse Reactions, Alerts Substance Reaction Severity Status NKA Active Medications amitriptyline 100 mg oral tablet 1 tablet = 100 mg, By Mouth, Daily at bedtime, 0 Refills, Maintenance, 01/06/20 10:41:00 EDT Start Date: 01/06/20 Status: Orderedestradiol 0.075 mg/24 hours twice weekly transdermal film, extended release 1 patch, Topically, Every Thursday and , # 9 patch, 11 Refills, Maintenance, 02/16/20 23:49:00EDT, [facility] #[id number], 154.9, cm, 02/03/20 13:08:00 EDT, Height Start [...] capsule, 11 Refills, Maintenance, 02/16/20 23:50:00 EDT, [facility] #[id number], 154.9, cm, 02/03/20 13:08:00 EDT, Height Start [...]
--- OUTSIDE RECORDS SUMMARY | 2022-06-19 11:53 | XMS_ITS | Continuity of Care Document ---
:1960 Author Organization [facility] Address [address] [place] [address], 4th Floor [address] [place] [address]- Care Team Providers Name Role Phone Leobardo HERNANDEZ, Fabiana Primary Care Physician [id number] Date(s): 02/03/20 - 02/10/20 [facility] [address] [facility], 4th Floor [address] [place] [address]- [facility] Attending Physician: Princess Mir MD [...] oldest [Reference Range]: 1 Height 154.90 cm (02/03/20 1:01 PM) Weight 65 kg (02/03/20 1:01 PM) Body Mass Index [18.5-24.99] 27.09 *H* (02/03/20 1:01 PM) Blood Pressure [90-138/55-84 mm Hg] 137/71 mm Hg (02/03/20 1:01 PM) Blood pressure sites Arm, left (02/03/20 1:01 PM)
[2022-06-19 12:07] LABS: COVID-19 Test Negative (Negative); IDNOW Serial# BCCEAD1C
[2022-06-19 12:10] LABS: IDNOW Serial# 16C4AD1C; Influenza A Negative (Negative); Influenza B2 Negative (Negative)
[2022-06-19 13:18] LABS: Appearance Urine Clear; Color Urine Yellow; Glucose Urine UA Negative (Negative); Leukocyte Esterase Urine Small (1+) (Negative); Nitrite Urine Negative (Negative); UMIC TRIGGER UACC YES; Urine Blood Negative (Negative); Urine Ketones Negative (Negative); Urine Protein Negative (Neg-Trace)
[2022-06-19 13:20] LABS: Amphetamine Screen Urine Not Detected (Not Detect); Bacteria Urine None Seen (None Seen); Barbiturates, Urine Not Detected (Not Detect); Benzodiazepines Screen Urine Not Detected (Not Detect); Cannabinoid Screen Urine POSITIVE (Not Detect); Cocaine Screen Urine Not Detected (Not Detect); Fentanyl, urine POSITIVE (Not Detect); Hyaline Casts Urine 0-2 /LPF (0-2); Opiate Screen Urine POSITIVE (Not Detect); Phencyclidine Screen Urine Not Detected (Not Detect); RBC Urine 0-2 /HPF (0-2); UACC Culture Trigger YES; WBC Urine >50 /HPF (0-5)
== END 2022-06-19 13:40 | disposition home or self-care (01) ==
PROVIDERS: Physician Assistant; Emergency Provider Emergency Medicine
DX: T40.411A Poisoning by fentanyl or fentanyl analogs, accidental (unintentional), initial encounter (principal); T40.2X1A Poisoning by other opioids, accidental (unintentional), initial encounter; T40.711A Poisoning by cannabis, accidental (unintentional), initial encounter; Y92.480 Sidewalk as the place of occurrence of the external cause; F11.20 Opioid dependence, uncomplicated; Z20.822 Contact with and (suspected) exposure to COVID-19; B20 Human immunodeficiency virus [HIV] disease; E11.9 Type 2 diabetes mellitus without complications; I10 Essential (primary) hypertension; E78.5 Hyperlipidemia, unspecified; Z79.899 Other long term (current) drug therapy
CPT/HCPCS: 71046; 80307; 81001; 87086; 87502; 87635; 99284

== ENCOUNTER 2022-07-17 12:23 | Outpatient (REF) | payer MEDICAID, SELFPAY ==
--- NOTE | ~2022-07-17 | MM_ITS ---
EXAMINATION: MM SCREENING DIGITAL BREAST TOMOSYNTHESIS, BILATERAL CLINICAL INFORMATION: Screening. Asymptomatic. The lifetime risk of breast cancer based on the Tyrer-Cuzick Model is 30%. Additional annual screening with breast MRI may be of benefit in women with a score of 20% or greater. COMPARISON: Mammography: 09/12/2020 and studies dating back to 03/20/2015 TECHNIQUE: Digital breast tomosynthesis is performed in both the craniocaudal and mediolateral oblique views along with computer-aided detection (CAD). Synthesized 2D images are generated from the tomosynthesis. FINDINGS: The breasts are extremely dense, which lowers the sensitivity of mammography (ACR BI-RADS breast composition Category d). There is multiplicity and bilaterality of calcifications. There is a stable parenchymal pattern of the right breast. About the anteromedial aspect of the left breast, there is a questionable area of asymmetric density which on mediolateral oblique projection may lie along the nipple line. Spot compression views and possible ultrasound recommended. MM/MM tomosynthesis screening BI IMPRESSION: Asymmetric density anterior left breast ASSESSMENT: BI-RADS 0: Incomplete - Need Additional Imaging Evaluation RECOMMENDATION: 1. Additional views of the left breast 2. Targeted ultrasound if warranted after review of the additional views. 3. Radiology department staff will contact the patient for additional imaging. This patient's information was entered into a reminder system with a target due date for their next mammogram.
== END 2022-07-17 12:24 | disposition home or self-care (01) ==
LOC: HO.MAMMO 12:23
PROVIDERS: PCP Family Medicine; Visit Provider Advanced Practice Midwife
DX: Z12.31 Encounter for screening mammogram for malignant neoplasm of breast (principal)
CPT/HCPCS: 77063; 77067

== ENCOUNTER 2022-07-30 13:43 | Outpatient (REF) | payer MEDICAID, SELFPAY ==
--- NOTE | ~2022-07-30 | MM_ITS ---
EXAMINATION: MM DIAGNOSTIC DIGITAL BREAST TOMOSYNTHESIS, LEFT US TARGETED LEFT BREAST ULTRASOUND CLINICAL INFORMATION: Density medial anterior left breast. COMPARISON: Mammography: 07/17/2022 and studies dating back to 03/20/2015. TECHNIQUE: Digital breast tomosynthesis is performed. 2D images are generated from the tomosynthesis. The following views are obtained: Spot compression views of the left breast in craniocaudal and mediolateral oblique projections as well as full-field 90-degree mediolateral view of the left breast. Targeted left breast ultrasound. FINDINGS: The breasts are heterogeneously dense, which may obscure small masses (ACR BI-RADS breast composition Category c). The additional views do not definitely demonstrate persistence of the abnormal density; however, there is a large amount of dense breast parenchyma present limiting evaluation. Targeted left breast ultrasound demonstrates a 3 mm cyst at the 3 o'clock position, approximately 8 cm from the nipple, with no suspicious left breast mass or region of abnormal distal sound shadowing appreciated. Results are discussed with the patient at time of visit. MM/MM tomosynthesis added views L IMPRESSION: No mammographic or ultrasound evidence of malignancy. ASSESSMENT: BI-RADS 2: Benign. RECOMMENDATION: Routine annual mammography screening. This patient's information was entered into a reminder system with a target due date for their next mammogram.
== END 2022-07-30 13:44 | disposition home or self-care (01) ==
LOC: HO.MAMMO 13:43
PROVIDERS: Visit Provider Advanced Practice Midwife
DX: R92.2 Inconclusive mammogram (principal)
CPT/HCPCS: 76642; 77061; 77065

== ENCOUNTER 2023-11-13 14:27 | Outpatient (REF) | payer MEDICAID, SELFPAY ==
[2023-11-13 16:27] LABS: MANUAL DIFF FLAG NO
[2023-11-13 16:42] LABS: Alanine Aminotransferase 13 U/L (0-31); Albumin Level 4.5 g/dL (3.5-5.0); Alkaline Phosphatase 77 U/L (39-117); Anion Gap 14 (12-20); Aspartate Amino Transferase 15 U/L (5-31); Bilirubin Total 0.3 mg/dL (0.0-1.0); Blood Urea Nitrogen 13 mg/dL (9-16); Calcium 9.7 mg/dL (8.4-10.2); Carbon Dioxide 29 mmol/L (22-29); Chloride 101 mmol/L (96-108); Estimated Glomerular Filt Rate 52; Glucose Random 126 mg/dL (60-115); Potassium 3.9 mmol/L (3.3-5.1); Sodium 140 mmol/L (135-145)
[2023-11-13 17:18] LABS: Basophils Absolute Auto 0.1 X10*3/uL (0.0-0.2); Basophils Percent Auto 1.1 % (0-2); Eosinophils Absolute Auto 0.3 X10*3/uL (0.0-0.4); Eosinophils Percent Auto 3.7 % (0-4); Hematocrit 41.9 % (37.0-47.0); Hemoglobin 14.2 g/dl (12.0-16.0); Imm Gran Abs Auto 0.05 X10*3/uL (0.00-0.03); Imm Gran Pct Auto 0.6 % (0.0-0.4); Lymphocytes Absolute Auto 3.9 X10*3/uL (1.2-4.9); Lymphocytes Percent Auto 47.9 % (20-40); Mean Corpuscular HGB Conc 33.9 g/dl (31.0-35.0); Mean Corpuscular Hemoglobin 32.1 pg (27.0-33.0); Mean Corpuscular Volume 94.6 fL (80.0-98.0); Mean Platelet Volume 10.2 fL (9.4-12.3); Monocytes Absolute Auto 0.5 X10*3/uL (0.1-1.2); Monocytes Percent Auto 6.4 % (2-11); Neutrophils Absolute Auto 3.3 x10*3/uL (2.0-8.3); Neutrophils Percent Auto 40.3 % (45-73); Platelet Count 301 X10*3/uL (160-400); Red Blood Count 4.43 X10*6/uL (4.20-5.50); Red Cell Distribution Width 13.7 % (11.0-16.0); White Blood Count 8.2 X10*3/uL (4.8-10.8)
[2023-11-17 11:38] LABS: HIV RNA PCR Qn Copies 29 copies/mL (NOT DETECTED); HIV RNA PCR Qn Log Copies 1.46 (NOT DETECTED)
[2023-11-17 12:18] LABS: HCV Log PCR <1.18 NOT DETECTED Log IU/mL (NOT DETECTED); HepC Viral Load <15 NOT DETECTED IU/mL (NOT DETECTED)
== END 2023-11-13 14:28 | disposition home or self-care (01) ==
LOC: HO.HHCL 14:27
PROVIDERS: Visit Provider Student in an Organized Health Care Education/Training Program
DX: Z21 Asymptomatic human immunodeficiency virus [HIV] infection status (principal)
CPT/HCPCS: 36415; 80053; 85025; 87522; 87536

== ENCOUNTER 2023-11-16 19:35 | Outpatient (REF) | payer MEDICAID, SELFPAY | END 2023-11-16 19:36 | disposition home or self-care (01) | LOC: HO.HHCLNP 19:35 | PROVIDERS: Visit Provider Family Medicine | DX: B35.1 Tinea unguium (principal) | CPT/HCPCS: 87101; 87220 ==

== ENCOUNTER 2024-02-11 13:01 | Outpatient (REF) | payer MEDICAID, SELFPAY ==
[2024-02-11 16:34] LABS: Cholesterol 189 mg/dL (<200); HDL Cholesterol 53 mg/dL (>40); LDL Cholesterol Calculated 112 mg/dL (<100); Triglycerides 124 mg/dL (<150); Uric Acid 6.4 mg/dL (2.4-5.7)
[2024-02-11 16:52] LABS: Free T4 (Free Thyroxine) 0.66 ng/dL (0.71-1.85); Thyroid Stimulating Hormone 54.96 uIU/mL (0.32-4.0)
[2024-02-11 16:56] LABS: Creatinine Urine 165.29 mg/dL; Microalbum/Creatinine Ratio Ur 6.6 ug/mg cr (<30)
[2024-02-11 17:32] LABS: Vitamin B12 359 pg/mL (200-900)
== END 2024-02-11 13:02 | disposition home or self-care (01) ==
LOC: HO.HHCL 13:01
PROVIDERS: Visit Provider Family Medicine
DX: E03.9 Hypothyroidism, unspecified (principal); E11.9 Type 2 diabetes mellitus without complications; E79.0 Hyperuricemia without signs of inflammatory arthritis and tophaceous disease
CPT/HCPCS: 36415; 80061; 82043; 82570; 82607; 82746; 84439; 84443; 84550

== ENCOUNTER 2024-02-24 14:47 | Outpatient (REF) | payer MEDICAID, SELFPAY ==
[2024-02-24 16:58] LABS: Free T4 (Free Thyroxine) 0.85 ng/dL (0.71-1.85); Thyroid Stimulating Hormone 45.61 uIU/mL (0.32-4.0)
[2024-02-25 22:38] LABS: Thyroglobulin <0.1 ng/mL; Thyroglobulin Antibodies 192 IU/mL (< or = 1)
== END 2024-02-24 14:48 | disposition home or self-care (01) ==
LOC: HO.HHCL 14:47
PROVIDERS: Visit Provider Family Medicine
DX: E03.9 Hypothyroidism, unspecified (principal)
CPT/HCPCS: 36415; 84432; 84439; 84443; 86800

== ENCOUNTER 2024-04-07 15:38 | Outpatient (REF) | payer MEDICAID, SELFPAY ==
[2024-04-07 16:50] LABS: Anion Gap 9 (12-20); Blood Urea Nitrogen 11 mg/dL (9-16); Calcium 9.4 mg/dL (8.4-10.2); Carbon Dioxide 29 mmol/L (22-29); Chloride 108 mmol/L (96-108); Estimated Glomerular Filt Rate > 60; Glucose Random 95 mg/dL (60-115); Potassium 4.3 mmol/L (3.3-5.1); Sodium 142 mmol/L (135-145)
== END 2024-04-07 15:39 | disposition home or self-care (01) ==
LOC: HO.HHCL 15:38
PROVIDERS: Visit Provider Family Medicine
DX: R63.4 Abnormal weight loss (principal)
CPT/HCPCS: 36415; 80048

== ENCOUNTER 2024-08-24 14:08 | Outpatient (REF) | payer MEDICAID, SELFPAY ==
--- OUTSIDE RECORDS SUMMARY | 2024-08-24 15:23 | XMS_ITS | Continuity of Care Document ---
Author Organization [facility] Address [address] [facility] [address] [place] [address] Phone Care Team Providers Care Product Safety Specialist Name Role Phone Marcela CHEUNG, Yudelka [...] First Film 017 Palliative (Emergency) Treatment Of [place] al Pain REPLACE BROKEN TOOTH/IMP Replace Missing [...] Diagnoses Date Provider Providers Copied on Encounter [facility], [address] [place] [address],[address], [address] [place] [address], tel:[phone] Encounter for dental exam and cleaning w/o abnormal findings 7 [facility]. [address] [place] [address], [id number], . tel:[phone] [facility], [address] [place] [address] 2,[address], [place], [id number], tel:[phone] Encounter for dental exam and cleaning w/o abnormal findings 3-201 6 [facility]. [address] [place] [address], [id number], . tel:[phone] [facility], [address] [place] [address] 2,[address], [place], [id number], tel:[phone] 22 [facility] Encounter for dental exam and cleaning w/o abnormal findings 3- 6 No Information [facility], [address], [place], [place], [id number], [place] tel:[phone] 22 [facility] Encounter for dental exam and cleaning w/o abnormal findings 8- 6 No Information [facility], [address], [place], [place], [id number], [place] tel:[phone] [facility] examination Oct-0 3-201 4 No Information [facility], [address], [place], [place], [id number], [place] tel:[phone] 22 [facility] examination Sep-2 6- 4 No Information [facility], [address], [place], [place], [id number], [place] tel:[phone] 22 [facility] examination Sep-0 8- 4 No Information [facility], [address], [place], [place], [id number], [place] tel:[phone] 22 [facility] examination Feb-2 - 4 No Information [facility], [address], [place], [place], [id number], [place] tel:[phone] 22 [facility] examination Feb-0 5- 4 No Information [facility], [address], [place], [place], [id number], [place] tel:[phone] 22 [facility] examination Jan-0 - 4 No Information [facility], [address], [place], [place], [id number], [place] tel:[phone] 22 [facility] examination - 4 No Information [facility], [address], [place], [place], [id number], [place] tel:[phone] 22 [facility] No Information 4 No Information [facility], [address], [place], [place], [id number], tel:[phone] [facility] examination 4 No Information [facility], [address], [place], [place], [id number], tel:[phone] [facility] examination 4 No Information Family History Family Member Type Diagnosis Age At Onset No Information Payers Payer name Insurance type Covered alliance party ID Debi nayak(s) Eren [employer] +21 CI [id number] D [employer] Z [id number] Social History Type Description Quantity Date Captured [...]
[2024-08-24 16:25] LABS: MANUAL DIFF FLAG NO
[2024-08-24 16:37] LABS: Basophils Absolute Auto 0.1 X10*3/uL (0.0-0.2); Basophils Percent Auto 0.6 % (0-2); Eosinophils Absolute Auto 0.6 X10*3/uL (0.0-0.4); Eosinophils Percent Auto 6.4 % (0-4); Hematocrit 36.7 % (37.0-47.0); Hemoglobin 12.4 g/dl (12.0-16.0); Imm Gran Abs Auto 0.03 X10*3/uL (0.00-0.03); Imm Gran Pct Auto 0.3 % (0.0-0.4); Lymphocytes Absolute Auto 2.6 X10*3/uL (1.2-4.9); Lymphocytes Percent Auto 26.1 % (20-40); Mean Corpuscular HGB Conc 33.8 g/dl (31.0-35.0); Mean Corpuscular Volume 94.6 fL (80.0-98.0); Mean Platelet Volume 10.8 fL (9.4-12.3); Monocytes Absolute Auto 0.8 X10*3/uL (0.1-1.2); Neutrophils Absolute Auto 5.8 x10*3/uL (2.0-8.3); Neutrophils Percent Auto 58.6 % (45-73); Platelet Count 283 X10*3/uL (160-400); Red Blood Count 3.88 X10*6/uL (4.20-5.50); Red Cell Distribution Width 14.9 % (11.0-16.0)
[2024-08-24 16:54] LABS: Alanine Aminotransferase 16 U/L (0-31); Albumin Level 4.2 g/dL (3.5-5.0); Anion Gap 10 (12-20); Aspartate Amino Transferase 21 U/L (5-31); Bilirubin Total 0.2 mg/dL (0.0-1.0); Blood Urea Nitrogen 17 mg/dL (9-16); Calcium 9.5 mg/dL (8.4-10.2); Carbon Dioxide 26 mmol/L (22-29); Chloride 106 mmol/L (96-108); Estimated Glomerular Filt Rate 60; Glucose Random 113 mg/dL (60-115); Potassium 4.4 mmol/L (3.3-5.1); Sodium 138 mmol/L (135-145); Total Protein 7.8 g/dL (6.5-8.0)
[2024-08-24 17:09] LABS: Alkaline Phosphatase 68 U/L (39-117)
[2024-08-25 07:38] LABS: HBS Num1 6.72 mIU/mL (0-7.99); HBc Num1 0.14 S/CO (0.00-0.79); HBsAGNum1 0.43 S/CO (0.00-0.99); Hepatitis B Core Antibody Nonreactive (Nonreactive); Hepatitis B Surface Antigen Negative (Negative); ~Hepatitis B Surface Antibody NONREACTIVE (Nonreactive)
[2024-08-26 02:44] LABS: Rubeola IgG (Measles) >300.00 AU/mL
[2024-08-26 12:38] LABS: RPR Rapid Plasma Reagin NON-REACTIVE (NON-REACTIVE)
[2024-08-26 15:04] LABS: HIV RNA PCR Qn Copies NOT DETECTED copies/mL (NOT DETECTED); HIV RNA PCR Qn Log Copies NOT DETECTED (NOT DETECTED)
[2024-08-27 03:28] LABS: TS Negative Control Passed; TS Panel A 0; TS Panel B 0; TS Positive Control Passed; TSpotTB Negative (Negative)
[2024-08-28 17:43] LABS: Absolute CD3 Count 1602 cells/uL (840-3060); Absolute CD4 Count 911 cells/uL (490-1740); Absolute CD8 Count 709 cells/uL (180-1170); Absolute Lymphocytes 2549 cells/uL (850-3900); CD4 CD8 Ratio 1.28 (0.86-5.00); Percent CD3 Cells 63 % (57-85); Percent CD4 Cells 36 % (30-61); Percent CD8 Cells 28 % (12-42)
== END 2024-08-24 14:09 | disposition home or self-care (01) ==
LOC: HO.HHCL 14:08
PROVIDERS: Visit Provider Student in an Organized Health Care Education/Training Program
DX: Z21 Asymptomatic human immunodeficiency virus [HIV] infection status (principal)
CPT/HCPCS: 36415; 80053; 85025; 86359; 86360; 86481; 86592; 86704; 86706; 86735; 86762; 86765; 86787; 87340; 87536

== ENCOUNTER 2024-12-05 12:04 | Outpatient (REF) | payer MEDICARE, MEDICAID, SELFPAY ==
--- OUTSIDE RECORDS SUMMARY | 2024-12-05 12:37 | XMS_ITS | Continuity of Care Document ---
Author Organization [facility] Address [address] [facility] [address] [place] [address] Phone Care Team Providers Care 3D Designer Name Role Phone Marcela CHEUNG, Yudelka North [...] First Film 017 Palliative (Emergency) Treatment Of [place] al Pain REPLACE BROKEN TOOTH/IMP Replace Missing [...] Diagnoses Date Provider Providers Copied on Encounter [facility], [address] [place] [address],[address], [address] [place] [address], tel:[phone] [facility] Encounter for dental exam and cleaning w/o abnormal findings 7 [facility]. [address] [place] [address], [id number], . tel:[phone] [facility], [address] [place] [address] 2,[address], [place], [id number], tel:[phone] [facility] Encounter for dental exam and cleaning w/o abnormal findings 3-201 6 [facility]. [address] [place] [address], [id number], . tel:[phone] [facility], [address] [place] [address] 2,[address], [place], [id number], tel:[phone] 22 [facility] Encounter for dental exam and cleaning w/o abnormal findings 3- 6 No Information [facility], [address] [facility] [address], [place], [place], [id number], [place] tel:[phone] [facility] Encounter for dental exam and cleaning w/o abnormal findings 8- 6 No Information [facility], [address] [facility] [address], [place], [place], [id number], [place] tel:[phone] [facility] examination Oct-0 3-201 4 No Information [facility], [address] [facility] [address], [place], [place], [id number], [place] tel:[phone] [facility] examination Sep-2 6- 4 No Information [facility], [address] [facility] [address], [place], [place], [id number], [place] tel:[phone] [facility] examination Sep-0 8- 4 No Information [facility], [address] [facility] [address], [place], [place], [id number], [place] tel:[phone] [facility] examination Feb-2 - 4 No Information [facility], [address] [facility] [address], [place], [place], [id number], [place] tel:[phone] [facility] examination Feb-0 5- 4 No Information [facility], [address] [facility] [address], [place], [place], [id number], [place] tel:[phone] [facility] examination Jan-0 - 4 No Information [facility], [address] [facility] [address], [place], [place], [id number], [place] tel:[phone] 22 [facility] examination - 4 No Information [facility], [address] [facility] [address], [place], [place], [id number], [place] tel:[phone] [facility] No Information 4 No Information [facility], [address] [facility] [address], [place], [place], [id number], tel:[phone] 22 [facility] examination 4 No Information [facility], [address] [facility] [address], [place], [place], [id number], tel:[phone] [facility] examination 4 No Information Family History Family Member Type Diagnosis Age At Onset No Information Payers Payer name Insurance type Covered democrat ID Debi nayak(linsey) Eren [employer] [id number] Social History Type Description Quantity Date Captured [...]
[2024-12-05 13:05] LABS: MANUAL DIFF FLAG NO
[2024-12-05 13:25] LABS: Basophils Absolute Auto 0.1 X10*3/uL (0.0-0.2); Basophils Percent Auto 1.3 % (0-2); Eosinophils Absolute Auto 0.3 X10*3/uL (0.0-0.4); Eosinophils Percent Auto 4.1 % (0-4); Hematocrit 39.8 % (37.0-47.0); Hemoglobin 13.2 g/dl (12.0-16.0); Imm Gran Abs Auto 0.04 X10*3/uL (0.00-0.03); Imm Gran Pct Auto 0.5 % (0.0-0.4); Lymphocytes Percent Auto 37.7 % (20-40); Mean Corpuscular HGB Conc 33.2 g/dl (31.0-35.0); Mean Corpuscular Hemoglobin 31.8 pg (27.0-33.0); Mean Corpuscular Volume 95.9 fL (80.0-98.0); Mean Platelet Volume 10.2 fL (9.4-12.3); Monocytes Absolute Auto 0.5 X10*3/uL (0.1-1.2); Monocytes Percent Auto 6.4 % (2-11); Neutrophils Absolute Auto 3.9 x10*3/uL (2.0-8.3); Platelet Count 261 X10*3/uL (160-400); Red Blood Count 4.15 X10*6/uL (4.20-5.50); Red Cell Distribution Width 13.5 % (11.0-16.0); White Blood Count 7.9 X10*3/uL (4.8-10.8)
[2024-12-05 13:33] LABS: Appearance Urine Clear; Color Urine Yellow; Glucose Urine UA Negative (Negative); Leukocyte Esterase Urine Trace (Negative); Nitrite Urine Positive (Negative); PH 6.5 (5.0-9.0); Specific Gravity - Urine 1.025 (1.005-1.025); UMIC TRIGGER UACC YES; Urine Blood Negative (Negative); Urine Ketones Trace mg/dL (Negative); Urine Protein Trace mg/dL (Neg-Trace)
[2024-12-05 13:36] LABS: Bacteria Urine 2+ (None Seen); Hyaline Casts Urine 0-2 /LPF (0-2); RBC Urine 0-2 /HPF (0-2); UACC Culture Trigger YES
[2024-12-05 13:58] LABS: Alanine Aminotransferase 29 U/L (0-31); Albumin Level 4.5 g/dL (3.5-5.0); Alkaline Phosphatase 62 U/L (39-117); Aspartate Amino Transferase 31 U/L (5-31); Bilirubin Direct < 0.2 mg/dL (0.0-0.5); Bilirubin Total 0.2 mg/dL (0.0-1.0); Cholesterol 181 mg/dL (<200); HDL Cholesterol 52 mg/dL (>40); LDL Cholesterol Calculated 102 mg/dL (<100); Total Protein 7.6 g/dL (6.5-8.0); Triglycerides 135 mg/dL (<150)
[2024-12-05 14:09] LABS: Reflex LDLD? No
[2024-12-05 14:10] LABS: TSH reflex Free T4 66.96 uIU/mL (0.32-4.0); Vitamin D 25-OH Total 25.7 ng/mL (>30)
[2024-12-05 14:21] LABS: Uric Acid 6.4 mg/dL (2.4-5.7)
[2024-12-05 14:38] LABS: CT PCR NOT DETECTED (Not Detect.); NG PCR NOT DETECTED (Not Detect.)
[2024-12-05 15:55] LABS: Free T4 (Free Thyroxine) 0.43 ng/dL (0.71-1.85)
== END 2024-12-05 12:05 | disposition home or self-care (01) ==
LOC: HO.HHCL 12:04
PROVIDERS: Student in an Organized Health Care Education/Training Program; Visit Provider Family Medicine
DX: Z21 Asymptomatic human immunodeficiency virus [HIV] infection status (principal); E03.9 Hypothyroidism, unspecified; E78.5 Hyperlipidemia, unspecified; E79.0 Hyperuricemia without signs of inflammatory arthritis and tophaceous disease; E55.9 Vitamin D deficiency, unspecified; R82.79 Other abnormal findings on microbiological examination of urine
CPT/HCPCS: 36415; 80061; 80076; 81001; 82306; 84439; 84443; 84550; 85025; 87086; 87088; 87186; 87491; 87591

== ENCOUNTER 2024-12-20 13:37 | Outpatient (REF) | payer MEDICARE, MEDICAID, SELFPAY ==
--- OUTSIDE RECORDS SUMMARY | 2024-12-20 15:18 | XMS_ITS | Continuity of Care Document ---
Author Organization [facility] Address [address] [facility] [address] [facility] [address] [place] [address] Phone Care Team Providers Care Car Body Inspector Name Role Phone Marcela CHEUNG, Yudelka North [...] First Film 017 Palliative (Emergency) Treatment Of [place] al Pain REPLACE BROKEN TOOTH/IMP Replace Missing [...] Diagnoses Date Provider Providers Copied on Encounter [facility], [address] [place] [address],[address], [address] [place] [address], tel:[phone] [facility] Encounter for dental exam and cleaning w/o abnormal findings 7 [facility]. [address] [place] [address], [id number], . tel:[phone] [facility], [address] [place] [address] 2,[address], [place], [id number], tel:[phone] [facility] Encounter for dental exam and cleaning w/o abnormal findings 3-201 6 [facility]. [address] [place] [address], [id number], . tel:[phone] [facility], [address] [place] [address] 2,[address], [place], [id number], tel:[phone] 22 [facility] Encounter for dental exam and cleaning w/o abnormal findings 3- 6 No Information [facility], [address] [facility] [address], [place], [place], [id number], [place] tel:[phone] [facility] Encounter for dental exam and cleaning w/o abnormal findings 8- 6 No Information [facility], [address] [facility] [address], [place], [place], [id number], [place] tel:[phone] [facility] examination Oct-0 3-201 4 No Information [facility], [address] [facility] [address], [place], [place], [id number], [place] tel:[phone] [facility] examination Sep-2 6- 4 No Information [facility], [address] [facility] [address], [place], [place], [id number], [place] tel:[phone] [facility] examination Sep-0 8- 4 No Information [facility], [address] [facility] [address], [place], [place], [id number], [place] tel:[phone] [facility] examination Feb-2 - 4 No Information [facility], [address] [facility] [address], [place], [place], [id number], [place] tel:[phone] [facility] examination Feb-0 5- 4 No Information [facility], [address] [facility] [address], [place], [place], [id number], [place] tel:[phone] [facility] examination Jan-0 - 4 No Information [facility], [address] [facility] [address], [place], [place], [id number], [place] tel:[phone] [facility] examination - 4 No Information [facility], [address] [facility] [address], [place], [place], [id number], [place] tel:[phone] 22 [facility] No Information 4 No Information [facility] [place] [facility], [address] [facility] [address], [place], [place], [id number], tel:[phone] 22 [facility] examination 4 No Information [facility] [place] [facility], [address] [facility] [address], [place], [place], [id number], tel:[phone] [facility] examination 4 No Information Family History Family Member Type Diagnosis Age At Onset No Information Payers Payer name Insurance type Covered libertarian ID Debi nayak(s) Eren [employer] [id number] Social History Type Description Quantity Date Captured [...] Goal Lipid panel. Due on due Goal Influenza vaccine. Due [...]
== END 2024-12-20 13:38 | disposition home or self-care (01) ==
LOC: HO.HHCL 13:37
PROVIDERS: Visit Provider Family Medicine
DX: Z13.89 Encounter for screening for other disorder (principal)

== ENCOUNTER 2025-01-02 13:04 | Outpatient (REF) | payer MEDICARE, MEDICAID, SELFPAY ==
--- OUTSIDE RECORDS SUMMARY | 2025-01-02 14:33 | XMS_ITS | Continuity of Care Document ---
Author Organization [facility] Address [address] [place] [address] Phone Care Team Providers Care Insurance Verification Clerk Name Role Phone Marcela CHEUNG, Yudelka North [...] First Film 017 [facility] (Emer[facility] [place] [facility] Pain REPLACE BROKEN TOOTH/IMP Replace Missing [...] Date Provider Providers Copied on Encounter [facility], [address] [place] [address],[address], [address] [place] [address], tel:[phone] [facility] Encounter for dental exam and cleaning w/o abnormal findings 7 [facility]. [address] [place] [address], [id number], . tel:[phone] [facility], [address] [place] [address] 2,[address], [place], [id number], tel:[phone] 22 [facility] Encounter for dental exam and cleaning w/o abnormal findings 3-201 6 [facility]. [address] [place] [address], [id number], . tel:[phone] [facility], [address] [place] [address] 2,[address], [place], [id number], tel:[phone] [facility] Encounter for dental exam and cleaning w/o abnormal findings 3- 6 No Information [facility], [address], [place], [place], [id number], [place] tel:[phone] [facility] Encounter for dental exam and cleaning w/o abnormal findings 8- 6 No Information [facility], [address], [place], [place], [id number], [place] tel:[phone] [facility] examination Oct-0 3-201 4 No Information [facility], [address], [place], [place], [id number], [place] tel:[phone] [facility] examination Sep-2 6- 4 No Information [facility], [address], [place], [place], [id number], [place] tel:[phone] [facility] examination Sep-0 8- 4 No Information [facility], [address], [place], [place], [id number], [place] tel:[phone] [facility] examination Feb-2 - 4 No Information [facility], [address], [place], [place], [id number], [place] tel:[phone] [facility] examination Feb-0 5- 4 No Information [facility], [address], [place], [place], [id number], [place] tel:[phone] [facility] examination Jan-0 - 4 No Information [facility], [address], [place], [place], [id number], [place] tel:[phone] [facility] examination - 4 No Information [facility], [address], [place], [place], [id number], [place] tel:[phone] [facility] No Information 4 No Information [facility], [address], [place], [place], [id number], tel:[phone] [facility] examination 4 No Information [facility], [address], [place], [place], [id number], tel:[phone] [facility] examination 4 No Information Family History Family Member Type Diagnosis Age At Onset No Information Payers Payer name Insurance type Covered libertarian ID Debi nayak(linsey) [id number] Social History Type Description Quantity Date Captured [...]
[2025-01-02 16:12] LABS: MANUAL DIFF FLAG NO
[2025-01-02 16:21] LABS: Basophils Absolute Auto 0.1 X10*3/uL (0.0-0.2); Eosinophils Absolute Auto 0.3 X10*3/uL (0.0-0.4); Eosinophils Percent Auto 3.2 % (0-4); Hematocrit 39.8 % (37.0-47.0); Hemoglobin 13.2 g/dl (12.0-16.0); Imm Gran Abs Auto 0.03 X10*3/uL (0.00-0.03); Imm Gran Pct Auto 0.4 % (0.0-0.4); Lymphocytes Absolute Auto 3.7 X10*3/uL (1.2-4.9); Lymphocytes Percent Auto 47.1 % (20-40); Mean Corpuscular HGB Conc 33.2 g/dl (31.0-35.0); Mean Corpuscular Hemoglobin 31.4 pg (27.0-33.0); Mean Corpuscular Volume 94.5 fL (80.0-98.0); Mean Platelet Volume 10.3 fL (9.4-12.3); Monocytes Absolute Auto 0.7 X10*3/uL (0.1-1.2); Monocytes Percent Auto 8.3 % (2-11); Neutrophils Absolute Auto 3.2 x10*3/uL (2.0-8.3); Platelet Count 266 X10*3/uL (160-400); Red Blood Count 4.21 X10*6/uL (4.20-5.50); Red Cell Distribution Width 13.4 % (11.0-16.0); White Blood Count 7.9 X10*3/uL (4.8-10.8)
[2025-01-02 16:37] LABS: Alanine Aminotransferase 23 U/L (0-31); Albumin Level 4.3 g/dL (3.5-5.0); Alkaline Phosphatase 68 U/L (39-117); Anion Gap 11 (12-20); Aspartate Amino Transferase 23 U/L (5-31); Bilirubin Total 0.1 mg/dL (0.0-1.0); Blood Urea Nitrogen 17 mg/dL (9-16); Calcium 9.5 mg/dL (8.4-10.2); Carbon Dioxide 28 mmol/L (22-29); Chloride 108 mmol/L (96-108); Estimated Glomerular Filt Rate 49; Glucose Random 127 mg/dL (60-115); Potassium 4.5 mmol/L (3.3-5.1); Sodium 142 mmol/L (135-145); Total Protein 7.1 g/dL (6.5-8.0)
[2025-01-02 16:46] LABS: Cholesterol 151 mg/dL (<200); HDL Cholesterol 43 mg/dL (>40); LDL Cholesterol Calculated 68 mg/dL (<100); Triglycerides 204 mg/dL (<150)
[2025-01-02 17:05] LABS: TSH reflex Free T4 7.57 uIU/mL (0.32-4.0)
[2025-01-02 18:14] LABS: Reflex LDLD? No
[2025-01-02 18:47] LABS: Free T4 (Free Thyroxine) 1.03 ng/dL (0.71-1.85)
[2025-01-03 21:49] LABS: HIV RNA PCR Qn Copies 115 copies/mL (NOT DETECTED); HIV RNA PCR Qn Log Copies 2.06 (NOT DETECTED)
== END 2025-01-02 13:05 | disposition home or self-care (01) ==
LOC: HO.HHCL 13:04
PROVIDERS: Family Medicine; Visit Provider Student in an Organized Health Care Education/Training Program
DX: Z21 Asymptomatic human immunodeficiency virus [HIV] infection status (principal); E03.9 Hypothyroidism, unspecified; E78.5 Hyperlipidemia, unspecified
CPT/HCPCS: 36415; 80053; 80061; 84439; 84443; 85025; 87536

== ENCOUNTER 2025-02-06 11:03 | Outpatient (REF) | payer MEDICARE, MEDICAID, SELFPAY ==
--- OUTSIDE RECORDS SUMMARY | 2017-01-14 08:30 | XMS_ITS | Continuity of Care Document ---
Author Organization Adelfo Alcantar [facility] Address [address] [place] [address] Phone Care Team Providers Care Release Of Information Specialist Name Role Phone Marcela CHEUNG, Yudelka North [...] First Film 017 Palliative (Emergency) Treatment Of [place] al Pain REPLACE BROKEN TOOTH/IMP Replace Missing [...] Date Provider Providers Copied on Encounter [facility], [address] [place] [address],[address], [address] [place] [address], tel:[phone] Encounter for dental exam and cleaning w/o abnormal findings 7 [facility]. [address] [place] [address], [id number], . tel:[phone] [facility], [address] [place] [address] 2,[address], [place], [id number], tel:[phone] [facility] Encounter for dental exam and cleaning w/o abnormal findings 3-201 6 [facility]. [address] [place] [address], [id number], . tel:[phone] [facility], [address] [place] [address] 2,[address], [place], [id number], tel:[phone] 22 [facility] Encounter for dental exam and cleaning w/o abnormal findings 3- 6 No Information [facility], [address] [facility] [address] [facility] [address], [place], [place], [id number], [place] tel:[phone] 22 [facility] Encounter for dental exam and cleaning w/o abnormal findings 8- 6 No Information [facility], [address] [facility] [address] [facility] [address], [place], [place], [id number], [place] tel:[phone] [facility] examination Oct-0 3-201 4 No Information [facility], [address] [facility] [address] [facility] [address], [place], [place], [id number], [place] tel:[phone] [facility] examination Sep-2 6- 4 No Information [facility], [address] [facility] [address], [place], [place], [id number], [place] tel:[phone] [facility] examination Sep-0 8- 4 No Information [facility], [address] [facility] [address], [place], [place], [id number], [place] tel:[phone] [facility] examination Feb-2 - 4 No Information [facility], [address] [facility] [address], [place], [place], [id number], [place] tel:[phone] [facility] examination Feb-0 5- 4 No Information [facility], [address] [facility] [address], [place], [place], [id number], [place] tel:[phone] [facility] examination Jan-0 - 4 No Information [facility], [address] [facility] [address], [place], [place], [id number], [place] tel:[phone] 22 [facility] examination - 4 No Information [facility], [address] [facility] [address], [place], [place], [id number], [place] tel:[phone] 22 [facility] No Information 4 No Information [facility]elfo Goodwin [facility], [address] [facility] [address] [facility] [address], [place], [place], [id number], tel:[phone] 22 [facility] examination 4 No Information [facility] Goodwin [facility], [address] [facility] [address] [facility] [address], [place], [place], [id number], tel:[phone] [facility] examination 4 No Information Family History Family Member Type Diagnosis Age At Onset No Information Payers Payer name Insurance type Covered democrat ID Debi nayak(linsey) Eren [employer] ZZ [id number] Social History Type Description Quantity Date Captured Comments Sex Female Smoking Status No Information Chief Complaint And Reason For Visit No Information Reason For Referral Reason For Referral No Information Plan Of Treatment Date Type Action Status Goal CT-Colonography. Due on due Goal FIT-DNA. Due on due Goal HPV. Due on [...] Goal Diabetes Screening. Due on due Goal Lipid panel. Due on due Goal Td vaccine. Due on 16 due Goal Pap/HPV testing. Due on due Goal Colonoscopy. Due on due Goal Mammogram. Due on 6 due Goal PAP. Due on due Goal Influenza vaccine. Due on due Goal Tdap. Due on due Goal APE. Due on due History Of Present Illness Encounter Date Complaint History Of Prese nt Illness No Information Functional Status Date Functional Assessmen t No Information Instructions Date Instruction Additional Infor mation No Information Assessments Type Assessment Date No Information Patient Care Teams Name Effective Dates (start - stop) Status Members No Information
[2025-02-06 14:25] LABS: Free T4 (Free Thyroxine) 0.89 ng/dL (0.71-1.85)
== END 2025-02-06 11:04 | disposition home or self-care (01) ==
LOC: HO.HHCL 11:03
PROVIDERS: PCP Family Medicine; Visit Provider Family Medicine
DX: E03.9 Hypothyroidism, unspecified (principal)
CPT/HCPCS: 36415; 84439; 84443

== ENCOUNTER 2025-02-07 16:31 | Outpatient (REF) | payer MEDICARE, MEDICAID, SELFPAY ==
--- OUTSIDE RECORDS SUMMARY | 2017-01-14 08:30 | XMS_ITS | Continuity of Care Document ---
Author Organization Adelfo Alcantar [facility] Address [address] [place] [address] Phone Care Team Providers Care High Speed Warper Tender Name Role Phone Marcela CHEUNG, Yudelka North [...] First Film 017 Palliative (Emergency) Treatment Of [place] al Pain REPLACE BROKEN TOOTH/IMP Replace Missing [...] Date Provider Providers Copied on Encounter [facility], [address] [place] [address],[address], [address] [place] [address], tel:[phone] [facility] Encounter for dental exam and cleaning w/o abnormal findings 7 [facility]. [address] [place] [address], [id number], . tel:[phone] [facility], [address] [place] [address] 2,[address], [place], [id number], tel:[phone] 22 [facility] Encounter for dental exam and cleaning w/o abnormal findings 3-201 6 [facility]. [address] [place] [address], [id number], . tel:[phone] [facility], [address] [place] [address] 2,[address], [place], [id number], tel:[phone] 22 [facility] Encounter for dental exam and cleaning w/o abnormal findings 3- 6 No Information [facility], [address] [facility] [address], [place], [place], [id number], [place] tel:[phone] [facility] Encounter for dental exam and cleaning w/o abnormal findings 8- 6 No Information [facility], [address] [facility] [address], [place], [place], [id number], [place] tel:[phone] [facility] examination Oct-0 3-201 4 No Information [facility], [address] [facility] [address], [place], [place], [id number], [place] tel:[phone] 22 [facility] examination Sep-2 6- 4 No Information [facility], [address] [facility] [address], [place], [place], [id number], [place] tel:[phone] [facility] examination Sep-0 8- 4 No Information [facility], [address] [facility] [address], [place], [place], [id number], [place] tel:[phone] [facility] examination Feb-2 - 4 No Information [facility], [address] [facility] [address], [place], [place], [id number], [place] tel:[phone] [facility] examination Feb-0 5- 4 No Information [facility], [address] [facility] [address], [place], [place], [id number], [place] tel:[phone] 22 [facility] examination Jan-0 - 4 No Information [facility], [address] [facility] [address], [place], [place], [id number], [place] tel:[phone] [facility] examination - 4 No Information [facility], [address] [facility] [address], [place], [place], [id number], [place] tel:[phone] 22 [facility] No Information 4 No Information [facility], [address] [facility] [address], [place], [place], [id number], tel:[phone] [facility] examination 4 No Information [facility], [address] [facility] [address], [place], [place], [id number], tel:[phone] [facility] examination 4 No Information Family History Family Member Type Diagnosis Age At Onset No Information Payers Payer name Insurance type Covered democrat ID Debi nayak(s) Eren [employer] ZZ [id number] Social History Type Description Quantity Date Captured [...]
== END 2025-02-07 16:32 | disposition home or self-care (01) ==
LOC: HO.HHCLNP 16:31
PROVIDERS: Visit Provider Family Medicine
DX: Z12.31 Encounter for screening mammogram for malignant neoplasm of breast (principal); Z21 Asymptomatic human immunodeficiency virus [HIV] infection status
CPT/HCPCS: 88112

== ENCOUNTER 2025-03-01 09:52 | Outpatient (AMB) | payer MEDICARE, MEDICAID, SELFPAY ==
--- OUTSIDE RECORDS SUMMARY | 2017-01-14 08:30 | XMS_ITS | Continuity of Care Document ---
Author Organization Adelfo Alcantar [facility] Address [address] [place] [address] Phone Care Team Providers Care Blood Bank Manager Name Role Phone Marcela CHEUNG, Yudelka North [...] First Film 017 Palliative (Emergency) Treatment Of [place] al Pain REPLACE BROKEN TOOTH/IMP Replace Missing [...] Diagnoses Date Provider Providers Copied on Encounter [facility], [address] [place] [address],[address], [address] [place] [address], tel:[phone] Encounter for dental exam and cleaning w/o abnormal findings 7 [facility]. [address] [place] [address], [id number], . tel:[phone] [facility], [address] [place] [address] 2,[address], [place], [id number], tel:[phone] [facility] Encounter for dental exam and cleaning w/o abnormal findings 3-201 6 [facility]. [address] [place] [address], [id number], . tel:[phone] [facility], [address] [place] [address] 2,[address], [place], [id number], tel:[phone] [facility] Encounter for dental exam and cleaning w/o abnormal findings 3- 6 No Information [facility], [address] [facility] [address], [place], [place], [id number], [place] tel:[phone] [facility] Encounter for dental exam and cleaning w/o abnormal findings 8- 6 No Information [facility], [address] [facility] [address], [place], [place], [id number], [place] tel:[phone] [facility] examination Oct-0 3-201 4 No Information [facility], [address] [facility] [address], [place], [place], [id number], [place] tel:[phone] [facility] examination Sep-2 6- 4 No Information [facility], [address] [facility] [address], [place], [place], [id number], [place] tel:[phone] [facility] examination Sep-0 8- 4 No Information [facility], [address] [facility] [address], [place], [place], [id number], [place] tel:[phone] [facility] examination Feb-2 - 4 No Information [facility], [address] [facility] [address], [place], [place], [id number], [place] tel:[phone] [facility] examination Feb-0 5- 4 No Information [facility], [address] [facility] [address], [place], [place], [id number], [place] tel:[phone] [facility] examination Jan-0 - 4 No Information [facility], [address] [facility] [address], [place], [place], [id number], [place] tel:[phone] [facility] examination - 4 No Information [facility], [address] [facility] [address], [place], [place], [id number], [place] tel:[phone] 22 [facility] No Information 4 No Information [facility] Goodwin [facility], [address] [facility] [address] [facility] [address], [place], [place], [id number], tel:[phone] 22 [facility] examination 4 No Information Adelfo Goodwin [facility], [address] [facility] [address], [place], [place], [id number], tel:[phone] [facility] examination 4 No Information Family History Family Member Type Diagnosis Age At Onset No Information Payers Payer name Insurance type Covered democrat ID Debi nayak(linsey) Eren [employer] ZZ [id number] Social History Type Description Quantity Date Captured [...]
--- NOTE | 2025-03-01 09:59 | A.OFFVIS_ITS ---
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 Per [facility] referral patient reports her left hand middle finger gets stuck in flexion which causes her pain. States her finger begin to lock about 2 weeks ago and has worsen. She was given a trigger injection on 02/08/25 at [facility]. States injection did not help at all and her pain has increase. Patient also is having numbness and tingling in left hand only. No recent EMG done. Hx of right hand CTR more than 30 yrs ago, she is diabetic and HIV. 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 She complains of painful locking of the left middle finger. She says she received a trigger finger injection at [facility] on 02/08/25, but is concerned that she still has locking. She also complains of left hand numbness. Symptoms intermittent and occasional. No numbness in her right hand. She has a Hx of a left carpal tunnel release ~15 years ago. She has HIV, and is undergoing treatment. [facility] Medical History Diabetes Dyslipidemia H. pylori infection HIV (human immunodeficiency virus infection) HTN (hypertension) Family History Brother No problems noted. Social History Alcohol intake: never Substance Use Type: Marijuana Current occupational status: unemployed Current occupation: Right Handed Review of Systems Const All systems reviewed & are unremarkable except as noted in HPI and below Physical Exam Vital Signs: BMI result Body Mass Index 28.3 Const General: cooperative, healthy appearing and no acute distress Orientation/consciousness: patient oriented x3 HEENT Head: Yes normocephalic and Yes atraumatic Eyes EOM: EOMs intact bilaterally Resp Effort & Inspection: normal respiratory effort and able to speak in complete sentences Cardio Jugular venous distension: no JVD Skin General skin exam: turgor normal Rashes: no rashes Neuro General: patient oriented x3 Extrem Other: Evaluation of Left Upper Extremity: The patient is alert, oriented, and in no acute distress Neuro: Median, Ulnar, Radial nerves motor and sensory intact and sensation is normal to the tips of all digits Vascular: Cap refill brisk ROM: She can make a fist and extend all her digits Visible & palpable locking & catching of the middle finger Tender over the middle finger a1 shaw Skin: No lacerations or abrasions. General: No Ecchymosis. No Erythema or evidence of infection. Psych Appearance: grossly normal Affect: normal affect Attitude: cooperative Assessment & Plan Assessment & Plan (1) Trigger middle finger of left hand: Code(s): M65.332 - Trigger finger, left middle finger Category: Medical (2) Diabetes: Code(s): E11.9 - Type 2 diabetes mellitus without complications Category: Medical (3) Numbness and tingling in left hand: Code(s): R20.0 - Anesthesia of skin; R20.2 - Paresthesia of skin Category: Medical Plan Assessment & Plan: 1. Left middle finger trigger finger, S/P injection at an outside office Date of injection: 02/08/25 at an outside office I educated her about this condition I discussed operative and non-operative treatment options It is too early for a repeat injection today, but she may benefit from surgery. I explained that it can take up to 4-5 weeks before there is any improvement in her locking or catching symptoms. She expressed understanding. She will follow up in 4 weeks to see how she is doing. If she continues to have locking we can discuss surgery. 2. Left hand numbness Symptoms intermittent and only occasional 3. History of bilateral carpal tunnel release Patient reports this was done ~30 years ago in [place] Scribed for Lori Santoro MD by Jorgito Mccracken medical information officer, on 03/01/25 at 10:15 AM, EST. Coding Level of Care Code Est Pt Level 3 (52947) Diagnoses Trigger middle finger of left hand M65.332 Diabetes E11.9 Numbness and tingling in left hand R20.0; R20.2
[2025-03-01 10:02] VITALS: BMI 28.3
== END 2025-03-01 10:18 | disposition home or self-care (01) ==
LOC: HO.HOS 09:53
PROVIDERS: PCP Family Medicine; Visit Provider Orthopaedic Surgery
DX: M65.332 Trigger finger, left middle finger (principal); E11.9 Type 2 diabetes mellitus without complications; R20.0 Anesthesia of skin; R20.2 Paresthesia of skin
CPT/HCPCS: 99203

== ENCOUNTER → 2025-03-01 09:52 | Outpatient (BNVA) | payer MEDICARE, MEDICAID, SELFPAY | PROVIDERS: PCP Family Medicine; Visit Provider Orthopaedic Surgery | DX: M65.332 Trigger finger, left middle finger (principal); R20.0 Anesthesia of skin; R20.2 Paresthesia of skin; E11.9 Type 2 diabetes mellitus without complications | CPT/HCPCS: 99202 ==

== ENCOUNTER 2025-03-15 12:20 | Outpatient (REF) | payer MEDICARE, MEDICAID, SELFPAY ==
[2025-03-15 15:41] LABS: Free T4 (Free Thyroxine) 1.10 ng/dL (0.71-1.85)
== END 2025-03-15 12:21 | disposition home or self-care (01) ==
LOC: HO.HHCL 12:20
PROVIDERS: PCP Family Medicine; Visit Provider Family Medicine
DX: E03.9 Hypothyroidism, unspecified (principal)
CPT/HCPCS: 36415; 84439; 84443

== ENCOUNTER 2025-04-26 11:50 | Outpatient (REF) | payer OTHER, SELFPAY | END 2025-04-26 11:51 | disposition home or self-care (01) | LOC: HO.HHCL 11:50 | PROVIDERS: PCP Family Medicine; Visit Provider Family Medicine | DX: Z13.89 Encounter for screening for other disorder (principal) ==

== ENCOUNTER 2025-05-08 13:26 | Outpatient (REF) | payer OTHER, SELFPAY ==
[2025-05-08 19:12] LABS: Free T4 (Free Thyroxine) 1.05 ng/dL (0.71-1.85)
== END 2025-05-08 13:27 | disposition home or self-care (01) ==
LOC: HO.HHCL 13:26
PROVIDERS: PCP Family Medicine; Visit Provider Family Medicine
DX: E03.9 Hypothyroidism, unspecified (principal)
CPT/HCPCS: 36415; 84439; 84443

== ENCOUNTER 2025-05-11 11:45 | Outpatient (REF) | payer OTHER, SELFPAY ==
--- NOTE | ~2025-05-11 | XR_ITS ---
EXAMINATION: XR HIP, RIGHT CLINICAL INFORMATION: right hip pain, diffituly walking or bearing weight COMPARISON: None available. TECHNIQUE: AP and oblique views of the right hip. FINDINGS: There is a 6 mm blastic lesion, femoral head. Asymmetric joint space narrowing, coxofemoral joint. No acute cortical disruption or malalignment. Vascular calcifications. XR/XR ankle RT min 3V IMPRESSION: Mild to moderate osteoarthrosis/osteoarthritis, right hip. No acute fracture or dislocation. 6 mm blastic lesion, right femoral head. No definite diagnosis. EXAMINATION: XR ANKLE, RIGHT CLINICAL INFORMATION: right hip pain, diffituly walking or bearing weight COMPARISON: None available. TECHNIQUE: AP, lateral, and mortise views of the right ankle. FINDINGS: Degenerative changes in the tibiotarsal joint. No acute cortical disruption or malalignment. Small exostosis at the Achilles tendon insertion. No joint effusion. Vascular calcifications. Old traumatic deformity mid diaphysis of the right tibia. No subcutaneous emphysema. No lytic or blastic lesions. IMPRESSION: Degenerative changes without acute fracture or dislocation. Atherosclerosis disease, peripheral. Mild enthesopathy, Achilles tendon. Old traumatic deformity, mid diaphysis right tibia. Electronically signed by: Ace Odonnell MD 05/11/2025 12:59 PM EDT
--- NOTE | ~2025-05-11 | XR_ITS ---
EXAMINATION: XR HIP, RIGHT CLINICAL INFORMATION: right hip pain, diffituly walking or bearing weight COMPARISON: None available. TECHNIQUE: AP and oblique views of the right hip. FINDINGS: There is a 6 mm blastic lesion, femoral head. Asymmetric joint space narrowing, coxofemoral joint. No acute cortical disruption or malalignment. Vascular calcifications. XR/XR hip RT min 2V IMPRESSION: Mild to moderate osteoarthrosis/osteoarthritis, right hip. No acute fracture or dislocation. 6 mm blastic lesion, right femoral head. No definite diagnosis. EXAMINATION: XR ANKLE, RIGHT CLINICAL INFORMATION: right hip pain, diffituly walking or bearing weight COMPARISON: None available. TECHNIQUE: AP, lateral, and mortise views of the right ankle. FINDINGS: Degenerative changes in the tibiotarsal joint. No acute cortical disruption or malalignment. Small exostosis at the Achilles tendon insertion. No joint effusion. Vascular calcifications. Old traumatic deformity mid diaphysis of the right tibia. No subcutaneous emphysema. No lytic or blastic lesions. IMPRESSION: Degenerative changes without acute fracture or dislocation. Atherosclerosis disease, peripheral. Mild enthesopathy, Achilles tendon. Old traumatic deformity, mid diaphysis right tibia. Electronically signed by: Ace Odonnell MD 05/11/2025 12:59 PM EDT
== END 2025-05-11 11:46 | disposition home or self-care (01) ==
LOC: HO.HHCX 11:45
PROVIDERS: PCP Family Medicine; Visit Provider Family Medicine
DX: M25.571 Pain in right ankle and joints of right foot (principal); E03.9 Hypothyroidism, unspecified; G89.29 Other chronic pain; M25.551 Pain in right hip
CPT/HCPCS: 36415; 73502; 73610; 84443

== ENCOUNTER → 2025-05-11 12:07 | Outpatient (BNV) | payer OTHER, SELFPAY | PROVIDERS: PCP Family Medicine; Visit Provider Radiology Diagnostic Radiology | DX: M89.8X9 Other specified disorders of bone, unspecified site (principal); M19.071 Primary osteoarthritis, right ankle and foot; M16.11 Unilateral primary osteoarthritis, right hip | CPT/HCPCS: 73502; 73610 ==

== ENCOUNTER 2025-05-16 14:11 | Outpatient (REF) | payer OTHER, SELFPAY ==
--- OUTSIDE RECORDS SUMMARY | 2017-01-14 08:30 | XMS_ITS | Continuity of Care Document ---
Author Organization [facility] Address [address] [place] [address] Phone Care Team Providers Care Community Organizer Name Role Phone Marcela CHEUNG, Yudelka North [...] First Film 017 Palliative (Emergency) Treatment Of [place] al Pain REPLACE BROKEN TOOTH/IMP Replace Missing [...] Diagnoses Date Provider Providers Copied on Encounter [facility], [address] [place] [address],[address], [address] [place] [address], tel:[phone] [facility] Encounter for dental exam and cleaning w/o abnormal findings 7 [facility]. [address] [place] [address], [id number], . tel:[phone] [facility], [address] [place] [address] 2,[address], [place], [id number], tel:[phone] [facility] Encounter for dental exam and cleaning w/o abnormal findings 3-201 6 [facility]. [address] [place] [address], [id number], . tel:[phone] [facility], [address] [place] [address] 2,[address], [place], [id number], tel:[phone] 22 [facility] Encounter for dental exam and cleaning w/o abnormal findings 3- 6 No Information [facility], [address] [facility] [address], [place], [place], [id number], [place] tel:[phone] 22 [facility] Encounter for dental exam and cleaning w/o abnormal findings 8- 6 No Information [facility], [address] [facility] [address], [place], [place], [id number], [place] tel:[phone] [facility] examination Oct-0 3-201 4 No Information [facility], [address] [facility] [address], [place], [place], [id number], [place] tel:[phone] [facility] examination Sep-2 6- 4 No Information [facility], [address] [facility] [address], [place], [place], [id number], [place] tel:[phone] [facility] examination Sep-0 8- 4 No Information [facility], [address] [facility] [address], [place], [place], [id number], [place] tel:[phone] [facility] examination Feb-2 - 4 No Information [facility], [address] [facility] [address], [place], [place], [id number], [place] tel:[phone] [facility] examination Feb-0 5- 4 No Information [facility], [address] [facility] [address], [place], [place], [id number], [place] tel:[phone] 22 [facility] examination Jan-0 - 4 No Information [facility], [address] [facility] [address], [place], [place], [id number], [place] tel:[phone] 22 [facility] examination - 4 No Information [facility], [address] [facility] [address], [place], [place], [id number], [place] tel:[phone] 22 [facility] No Information 4 No Information Adelfo Goodwin [facility], [address] [facility] [address], [place], [place], [id number], tel:[phone] 22 [facility] examination 4 No Information Adelof Goodwin [facility], [address] [facility] [address], [place], [place], [id number], tel:[phone] [facility] examination 4 No Information Family History Family Member Type Diagnosis Age At Onset No Information Payers Payer name Insurance type Covered alliance party ID Debi nayak(s) Eren [employer] ZZ [id number] Social History Type Description Quantity Date Captured Comments Sex Female Smoking Status No Information Chief Complaint And Reason For Visit No Information Reason For Referral Reason For Referral No Information Plan Of Treatment Date Type Action Status Goal Zoster vaccine (). Due on due Goal Unhealthy drug use screening . Due on due Goal HPV. Due on due Goal FIT-DNA. Due on due Goal CT-Colonography. Due on due Goal FOBT. Due on [...] Td vaccine. Due on 17 due Goal Td vaccine. Due on 16 due Goal Lipid panel. Due on 016 due Goal Influenza vaccine. Due on due Goal PAP. Due on due Goal Mammogram. Due on 6 due Goal Colonoscopy. Due on due Goal Pap/HPV testing. Due [...]
[2025-05-16 16:32] LABS: MANUAL DIFF FLAG NO
[2025-05-16 16:51] LABS: Hematocrit 39.1 % (37.0-47.0); Hemoglobin 12.7 g/dl (12.0-16.0); Imm Gran Abs Auto 0.06 X10*3/uL (0.00-0.03); Imm Gran Pct Auto 0.8 % (0.0-0.4); Lymphocytes Absolute Auto 2.9 X10*3/uL (1.2-4.9); Mean Corpuscular HGB Conc 32.5 g/dl (31.0-35.0); Mean Corpuscular Hemoglobin 29.7 pg (27.0-33.0); Mean Corpuscular Volume 91.4 fL (80.0-98.0); NRBC Abs Auto 0.000 X10*3/uL (0.0-0.012); NRBC Pct Auto 0.0 /100WBC (0.0-0.2); Platelet Count 331 X10*3/uL (160-400); Red Blood Count 4.28 X10*6/uL (4.20-5.50); White Blood Count 7.5 X10*3/uL (4.8-10.8)
[2025-05-16 16:59] LABS: Alanine Aminotransferase 21 U/L (0-31); Albumin Level 4.6 g/dL (3.5-5.0); Alkaline Phosphatase 70 U/L (39-117); Anion Gap 12 (12-20); Aspartate Amino Transferase 23 U/L (5-31); Blood Urea Nitrogen 16 mg/dL (9-16); Calcium 9.5 mg/dL (8.4-10.2); Carbon Dioxide 30 mmol/L (22-29); Chloride 107 mmol/L (96-108); Estimated Glomerular Filt Rate > 60; Potassium 4.6 mmol/L (3.3-5.1); Sodium 144 mmol/L (135-145); Total Protein 7.5 g/dL (6.5-8.0)
[2025-05-16 17:14] LABS: Parathyroid Hormone Intact 104.3 pg/mL (8.7-77.1)
[2025-05-17 21:09] LABS: Prot Elec - Albumin 4.3 g/dL (3.8-4.8); Prot Elec - Alpha1 0.3 g/dL (0.2-0.3); Prot Elec - Alpha2 0.8 g/dL (0.5-0.9); Prot Elec - Beta 1 0.4 g/dL (0.4-0.6); Prot Elec - Beta 2 0.4 g/dL (0.2-0.5); Prot Elec - Gamma 1.2 g/dL (0.8-1.7); Prot Elec - Total Protein 7.4 g/dL (6.1-8.1)
== END 2025-05-16 14:12 | disposition home or self-care (01) ==
LOC: HO.HHCL 14:11
PROVIDERS: PCP Family Medicine; Visit Provider Family Medicine
DX: R93.6 Abnormal findings on diagnostic imaging of limbs (principal)
CPT/HCPCS: 36415; 80053; 82306; 83970; 84165; 85025

== ENCOUNTER 2025-05-22 16:44 | Emergency (ER) | payer OTHER, SELFPAY ==
--- OUTSIDE RECORDS SUMMARY | 2017-01-14 07:30 | XMS_ITS | Continuity of Care Document ---
Author Organization Adelfo Alcantar [facility] Address [address] [facility] [address] [place] [address] Phone Care Team Providers Care Personnel Research Scientist Name Role Phone Marcela CHEUNG, Yudelka North [...] First Film 017 Palliative (Emergency) Treatment Of [place] al Pain REPLACE BROKEN TOOTH/IMP Replace Missing [...] Diagnoses Date Provider Providers Copied on Encounter [facility], [address] [place] [address],[address], [address] [place] [address], tel:[phone] [facility] Encounter for dental exam and cleaning w/o abnormal findings 7 [facility]. [address] [place] [address], [id number], . tel:[phone] [facility], [address] [place] [address] 2,[address], [place], [id number], tel:[phone] [facility] Encounter for dental exam and cleaning w/o abnormal findings 3-201 6 [facility]. [address] [place] [address], [id number], . tel:[phone] [facility], [address] [place] [address] 2,[address], [place], [id number], tel:[phone] 22 [facility] Encounter for dental exam and cleaning w/o abnormal findings 3- 6 No Information [facility], [address] [facility] [address], [place], [place], [id number], [place] tel:[phone] [facility] Encounter for dental exam and cleaning w/o abnormal findings 8- 6 No Information [facility], [address] [facility] [address], [place], [place], [id number], [place] tel:[phone] [facility] examination Oct-0 3-201 4 No Information [facility], [address] [facility] [address], [place], [place], [id number], [place] tel:[phone] [facility] examination Sep-2 6- 4 No Information [facility], [address] [facility] [address], [place], [place], [id number], [place] tel:[phone] 22 [facility] examination Sep-0 8- 4 No Information [facility], [address] [facility] [address], [place], [place], [id number], [place] tel:[phone] [facility] examination Feb-2 - 4 No Information [facility], [address] [facility] [address], [place], [place], [id number], [place] tel:[phone] [facility] examination Feb-0 5- 4 No Information [facility], [address] [facility] [address], [place], [place], [id number], [place] tel:[phone] 22 [facility] examination Jan-0 - 4 No Information [facility], [address] [facility] [address], [place], [place], [id number], [place] tel:[phone] [facility] examination - 4 No Information [facility], [address] [facility] [address], [place], [place], [id number], [place] tel:[phone] 22 [facility] No Information 4 No Information Adelfo Goodwin [facility], [address] [facility] [address], [place], [place], [id number], tel:[phone] [facility] examination 4 No Information Adelfo Goodwin [facility], [address] [facility] [address], [place], [place], [id number], tel:[phone] [facility] examination 4 No Information Family History Family Member Type Diagnosis Age At Onset No Information Payers Payer name Insurance type Covered alliance party ID Debi nayak(s) Eren [employer] ZZ [id number] Social History Type Description Quantity Date Captured Comments Sex Female Smoking Status No Information Chief Complaint And Reason For Visit No Information Reason For Referral Reason For Referral No Information Plan Of Treatment Date Type Action Status Goal Zoster vaccine (). Due on due Goal Unhealthy drug use screening . Due on due Goal HPV. Due on due Goal CT-Colonography. Due on due Goal FIT-DNA. Due on due Goal FOBT. Due on due Goal Hepatitis C Screening. Due o n due Goal Document SOGI Information. D ue on due Goal Diabetes Screening. Due on due Goal APE. Due on due Goal Mammogram. Due on 7 due Goal Pap/HPV testing. Due on due Goal Lipid panel. Due on 017 due Goal Influenza vaccine. Due on due Goal Colonoscopy. Due on 017 due Goal Tdap. Due on due Goal Td vaccine. Due on 17 due Goal Lipid panel. Due on due Goal Td vaccine. Due on 16 due Goal Influenza vaccine. Due on due Goal PAP. Due on due Goal Mammogram. Due on 6 due Goal Colonoscopy. Due on 016 due Goal Pap/HPV testing. Due on due Goal APE. Due on due Goal Tdap. Due on due History Of Present Illness Encounter Date Complaint History Of Prese nt Illness No Information Functional Status Date Functional Assessmen t No Information Instructions Date Instruction Additional Infor mation No Information Assessments Type Assessment Date No Information Patient Care Teams Name Effective Dates (start - stop) Status Members No Information
[2025-05-22] VITALS (8 sets, daily range): BP systolic 96–128; BP diastolic 58–109; PULSE 84–109; RESP 16–20; TEMP 36.6; O2SAT 96–100; BMI 29.1
--- NOTE | ~2025-05-22 | CT_ITS ---
CLINICAL HISTORY: fall CT cervical spine without contrast Comparison: None provided Findings: Vertebral alignment is within normal limits. Mild multilevel spondylosis. No acute fractures or dislocations. Visualized intracranial contents are unremarkable. No cervical fluid collections or masses. No consolidation or effusion at the lung apices. IMPRESSION: No evidence of acute fracture or traumatic listhesis of the cervical spine. Mild multilevel spondylosis. This document has been electronically signed by: Justin Moreno MD on 05/22/2025 22:38:29
--- NOTE | ~2025-05-22 | CT_ITS ---
CLINICAL HISTORY: head injury CT head without contrast Comparison: None provided Findings: No intra-axial mass, midline shift, hydrocephalus, or acute hemorrhage. No significant atrophy-like change or white matter disease. The visualized paranasal sinuses and mastoid air cells are normal. The orbits are within normal limits. There is no acute fracture. IMPRESSION: 1. No acute intracranial findings. This document has been electronically signed by: Justin Moreno MD on 05/22/2025 22:39:31
--- NOTE | ~2025-05-22 | XR_ITS ---
CLINICAL HISTORY: kne injury 3 view right knee Comparison: None provided Findings: Bones intact. No dislocations. Chronic healed fracture of the proximal fibula. No significant arthritic change or erosions. No joint effusion. No radiopaque foreign body. IMPRESSION: 1. No acute findings. 2. Chronic healed fracture of the proximal fibula. This document has been electronically signed by: Justin Moreno MD on 05/22/2025 19:36:44
--- NOTE | 2025-05-22 16:54 | ECG_ITS ---
Test Reason : SYNCOPE Blood Pressure : */* mmHG Vent. Rate : 80 BPM Atrial Rate : 80 BPM P-R Int : 182 ms QRS Dur : 94 ms QT Int : 404 ms P-R-T Axes : 64 39 41 degrees QTcB Int : 465 ms Normal sinus rhythm Normal ECG No previous ECGs available Referred By: Javier Chávez Electronically Signed By: Dion Menendez
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
[2025-05-22 17:21] LABS: MANUAL DIFF FLAG NO
[2025-05-22 17:28] LABS: Hematocrit 35.6 % (37.0-47.0); Hemoglobin 12.0 g/dl (12.0-16.0); Imm Gran Abs Auto 0.09 X10*3/uL (0.00-0.03); Imm Gran Pct Auto 0.6 % (0.0-0.4); Lymphocytes Absolute Auto 1.9 X10*3/uL (1.2-4.9); Mean Corpuscular HGB Conc 33.7 g/dl (31.0-35.0); Mean Corpuscular Hemoglobin 30.2 pg (27.0-33.0); Mean Corpuscular Volume 89.4 fL (80.0-98.0); NRBC Abs Auto 0.000 X10*3/uL (0.0-0.012); NRBC Pct Auto 0.0 /100WBC (0.0-0.2); Platelet Count 263 X10*3/uL (160-400); Red Blood Count 3.98 X10*6/uL (4.20-5.50); White Blood Count 16.1 X10*3/uL (4.8-10.8)
[2025-05-22 17:41] LABS: Alanine Aminotransferase 18 U/L (0-31); Albumin Level 4.3 g/dL (3.5-5.0); Alkaline Phosphatase 80 U/L (39-117); Anion Gap 10 (12-20); Aspartate Amino Transferase 20 U/L (5-31); Blood Urea Nitrogen 18 mg/dL (9-16); Calcium 9.4 mg/dL (8.4-10.2); Carbon Dioxide 28 mmol/L (22-29); Chloride 105 mmol/L (96-108); Creatinine Clr Calc Pharmacy 55.7; Estimated Glomerular Filt Rate > 60; Potassium 4.4 mmol/L (3.3-5.1); Sodium 139 mmol/L (135-145); Total Protein 7.5 g/dL (6.5-8.0)
[2025-05-22] MEDS: diazePAM 10 MG/2 ML CARTRIDGE IM (17:43)
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
[2025-05-22] MEDS: OLANZapine 10 MG VIAL IM (18:20)
--- NOTE | 2025-05-22 18:22 | PC.NURSE ---
continues to be agitated/exit seeking/combative with staff. security requested back to bedside for standby assistance. additional order for IM zyprexa ordered by provider, administered as documented. continues to remove bp cuff/pulse ox.
[2025-05-22 19:18] LABS: Cannabinoid Screen Urine POSITIVE (Not Detect)
--- NOTE | 2025-05-22 19:28 | PC.NURSE ---
security called patient in hallway pacing and causing disruption
--- NOTE | 2025-05-22 19:58 | PC.NURSE ---
pt remains pacing around room and into hallway. MD has been at bedside. security remains at bedside
--- NOTE | 2025-05-22 21:18 | PC.NURSE ---
pt resting in bed w/eyes closed. vitals stable. 1:1 sitter at bedside.
--- NOTE | 2025-05-22 21:55 | PC.NURSE ---
continues sleeping in bed without distress at this time. sitter present at bedside
--- NOTE | 2025-05-22 22:41 | PC.NURSE ---
assisted patient to restroom at this time. returned to room and back in bed with no issues. pt agreeable and denied any pain or discomfort
--- NOTE | 2025-05-22 23:01 | PC.NURSE ---
pt alert and awake - requesting to return to restroom at this time. assisted with ambulating down [place] at this time without any issues. pt smiles and talks with nurse. helped back in bed at this time and will continue to monitor for any changes in condition
[2025-05-23] VITALS: RESP 18; O2SAT 97
--- NOTE | 2025-05-23 00:55 | PC.NURSE ---
pt sleeping in bed - no distress noted
--- NOTE | 2025-05-23 02:49 | PC.NURSE ---
pt sleeping in bed at this time. ambulated to restroom with assistance.
[2025-05-23 04:00] VITALS: RESP 16; O2SAT 98
--- NOTE | 2025-05-23 07:43 | PC.NURSE ---
care team in room meeting with patient
--- NOTE | 2025-05-23 08:23 | PC.NURSE ---
Patient beginning to get agitated. Patient stating she wants her clothes and repeatedly stating she wants to go home because she has an appointment. Patient pacing around room. Pending Care Team disposition. Denies SI/HI at this time.
--- NOTE | 2025-05-23 08:35 | PC.NURSE ---
Care Team speaking with patient at this time.
[2025-05-23 09:09] VITALS: BP 104/62; PULSE 81; RESP 16; TEMP 36.6; O2SAT 98
== END 2025-05-23 09:28 | disposition home or self-care (01) ==
PROVIDERS: Emergency Provider Emergency Medicine
DX: S00.83XA Contusion of other part of head, initial encounter (principal); S80.211A Abrasion, right knee, initial encounter; R45.1 Restlessness and agitation; E11.9 Type 2 diabetes mellitus without complications; I10 Essential (primary) hypertension; F14.10 Cocaine abuse, uncomplicated; F13.10 Sedative, hypnotic or anxiolytic abuse, uncomplicated; W19.XXXA Unspecified fall, initial encounter; Y93.89 Activity, other specified; Y92.89 Other specified places as the place of occurrence of the external cause; Y99.8 Other external cause status; Z21 Asymptomatic human immunodeficiency virus [HIV] infection status
CPT/HCPCS: 36415; 70450; 72125; 73560; 80053; 80307; 85025; 93005; 96372; 99285; J1630; J2359; J3360; S9485

== ENCOUNTER → 2025-05-22 16:54 | Outpatient (BNV) | payer OTHER, SELFPAY | PROVIDERS: Emergency Provider Emergency Medicine; Visit Provider Student in an Organized Health Care Education/Training Program | DX: M47.812 Spondylosis without myelopathy or radiculopathy, cervical region (principal); W18.30XA Fall on same level, unspecified, initial encounter; S09.90XA Unspecified injury of head, initial encounter; S80.911A Unspecified superficial injury of right knee, initial encounter | CPT/HCPCS: 70450; 72125; 73560 ==

== ENCOUNTER → 2025-05-22 16:54 | Outpatient (BNV) | payer OTHER, SELFPAY | PROVIDERS: Emergency Provider Emergency Medicine; Visit Provider Internal Medicine Cardiovascular Disease | DX: R55 Syncope and collapse (principal) | CPT/HCPCS: 93010 ==

== ENCOUNTER 2025-05-23 15:49 | Outpatient (REF) | payer OTHER, SELFPAY ==
--- OUTSIDE RECORDS SUMMARY | 2017-01-14 07:30 | XMS_ITS | Continuity of Care Document ---
Author Organization Adelfo [facility]cantar [facility] Address [address] [facility] [address] [place] [address] Phone Care Team Providers Care Retail Greeter Name Role Phone Marcela CHEUNG, Yudelka North [...] First Film 017 Palliative (Emergency) Treatment Of [place] al Pain REPLACE BROKEN TOOTH/IMP Replace Missing [...] Diagnoses Date Provider Providers Copied on Encounter [facility], [address] [place] [address],[address], [address] [place] [address], tel:[phone] [facility] Encounter for dental exam and cleaning w/o abnormal findings 7 [facility]. [address] [place] [address], [id number], . tel:[phone] [facility], [address] [place] [address] 2,[address], [place], [id number], tel:[phone] 22 [facility] Encounter for dental exam and cleaning w/o abnormal findings 3-201 6 [facility] [facility]. [address] [place] [address], [id number], . tel:[phone] [facility], [address] [place] [address] 2,[address], [place], [id number], tel:[phone] 22 [facility] Encounter for dental exam and cleaning w/o abnormal findings 3- 6 No Information [facility], [address] [facility] [address], [place], [place], [id number], [place] tel:[phone] 22 [facility] Encounter for dental exam and cleaning w/o abnormal findings 8- 6 No Information [facility], [address] [facility] [address], [place], [place], [id number], [place] tel:[phone] 22 [facility] examination Oct-0 3-201 4 No Information [facility], [address] [facility] [address], [place], [place], [id number], [place] tel:[phone] 22 [facility] examination Sep-2 6- 4 No Information [facility], [address] [facility] [address], [place], [place], [id number], [place] tel:[phone] 22 [facility] examination Sep-0 8- 4 No Information [facility], [address] [facility] [address], [place], [place], [id number], [place] tel:[phone] 22 [facility] examination Feb-2 - 4 No Information [facility], [address] [facility] [address], [place], [place], [id number], [place] tel:[phone] 22 [facility] examination Feb-0 5- 4 No Information [facility], [address] [facility] [address], [place], [place], [id number], [place] tel:[phone] 22 [facility] examination Jan-0 - 4 No Information [facility], [address] [facility] [address], [place], [place], [id number], [place] tel:[phone] 22 [facility] examination - 4 No Information [facility], [address] [facility] [address], [place], [place], [id number], [place] tel:[phone] 22 [facility] No Information 4 No Information [facility]elfo Goodwin [facility], [address] [facility] [address], [place], [place], [id number], tel:[phone] 22 [facility] examination 4 No Information Adelfo Goodwin [facility], [address] [facility] [address], [place], [place], [id number], tel:[phone] [facility] Dental examination 4 No Information Family History Family Member Type Diagnosis Age At Onset No Information Payers Payer name Insurance type Covered constitution party ID Debi nayak(s) Eren [employer] [id number] Social History Type Description Quantity Date Captured [...] Td vaccine. Due on 16 due Goal Tdap. Due on due Goal [...]
[2025-05-23 18:01] LABS: MANUAL DIFF FLAG NO
[2025-05-23 18:23] LABS: Hematocrit 36.4 % (37.0-47.0); Hemoglobin 12.2 g/dl (12.0-16.0); Imm Gran Abs Auto 0.05 X10*3/uL (0.00-0.03); Imm Gran Pct Auto 0.4 % (0.0-0.4); Lymphocytes Absolute Auto 3.0 X10*3/uL (1.2-4.9); Mean Corpuscular HGB Conc 33.5 g/dl (31.0-35.0); Mean Corpuscular Hemoglobin 30.4 pg (27.0-33.0); Mean Corpuscular Volume 90.8 fL (80.0-98.0); NRBC Abs Auto 0.000 X10*3/uL (0.0-0.012); NRBC Pct Auto 0.0 /100WBC (0.0-0.2); Platelet Count 307 X10*3/uL (160-400); Red Blood Count 4.01 X10*6/uL (4.20-5.50); White Blood Count 11.6 X10*3/uL (4.8-10.8)
[2025-05-23 18:25] LABS: Alanine Aminotransferase 20 U/L (0-31); Albumin Level 4.4 g/dL (3.5-5.0); Alkaline Phosphatase 82 U/L (39-117); Anion Gap 11 (12-20); Aspartate Amino Transferase 35 U/L (5-31); Blood Urea Nitrogen 18 mg/dL (9-16); Calcium 9.5 mg/dL (8.4-10.2); Carbon Dioxide 27 mmol/L (22-29); Chloride 105 mmol/L (96-108); Estimated Glomerular Filt Rate > 60; Potassium 4.2 mmol/L (3.3-5.1); Sodium 139 mmol/L (135-145); Total Protein 7.8 g/dL (6.5-8.0)
== END 2025-05-23 15:50 | disposition home or self-care (01) ==
LOC: HO.HHCL 15:49
PROVIDERS: PCP Family Medicine; Visit Provider Nurse Practitioner Primary Care
DX: D72.829 Elevated white blood cell count, unspecified (principal)
CPT/HCPCS: 36415; 80053; 85025

== ENCOUNTER 2025-06-12 15:50 | Outpatient (REF) | payer OTHER, SELFPAY ==
--- OUTSIDE RECORDS SUMMARY | 2017-01-14 07:30 | XMS_ITS | Continuity of Care Document ---
Author Organization Adelfo Alcantar [facility] Address [address] [facility] [address] [place] [address] Phone Care Team Providers Care Site Foreman Name Role Phone Marcela CHEUNG, Yudelka North Unavailable Unavailab le Allergies, Adverse Reactions, Alerts Substance Reaction Status Criticality No Known Allergies Active No Inform ation Medications Medication Instructions Dosage Effective Dates (start - stop) Status Comments ibuprofen 800 mg tablet take 1 tablet by oral route 3 times every day with food 800 MG - Active penicillin V potassium 500 mg tablet take 1 tablet by oral route every 8 hours 500 MG - Active TIROSINT (unknown strength) take 1 capsule by oral route every day Not Available - Active TRAZODONE HCL (unknown strength) Not Available - Active KLONOPIN (unknown strength) Not Available - Active RIOMET (unknown strength) Not Available - Active PRAVASTATIN SODIUM (unknown strength) Not Available - Active Procedures Procedure Date Intraoral-Periapical First Film 017 Palliative (Emergency) Treatment Of [place] al Pain REPLACE BROKEN TOOTH/IMP Replace Missing Or Broken Teeth-Complete Denture ( Intraoral-Periapical First Film 016 Intraoral-Periapical Each Additional Ajit m Intraoral-Periapical Each Additional Ajit m Intraoral-Periapical Each Additional Ajit m Prophylaxis-Adult Oral Hygiene Instructions Periodontal Probing Nutritional Counseling For Control Of De ntal Disea Periodic Oral Evaluation-Established Pat ient Adjust Partial Denture-Mandibular Complete Denture-Maxillary Mandibular Partial Denture-Resin Base (I ncluding A FULLMXDENT/WAX SET UP/TRYIN FULLMXDENT/WAXRIM/BITE LOWER ACRYLIC PARTIAL/WAXRIM/BITE FULLMXDENT/FINAL AND CUSTOM LOWER PARTIAL DENTURE FINAL IMPRESSION A FULL MX DENT IMP & DIAG CAST LOWER ACRYLIC PARTIAL/IMP&CAST 14 Extraction, Erupted Tooth Or Exposed Baylee t (Elevati Extraction, Erupted Tooth Or Exposed Baylee t (Elevati Resin-Based Composite-Two Surfaces, Post erior Comprehensive Oral Evaluation-New Or Est ablished P Intraoral-Complete Series (Including Bit ewings) Periodontal Probing Prophylaxis-Adult Oral Hygiene Instructions Tobacco Counseling For The Control And P revention Advance Directives Directive Yes / No Effective Date File Name No Information Encounters Encounter Description Practice Location Reason(s) For Visit Diagnoses Date Provider Providers Copied on Encounter [facility], [address] [place] [address],[address], [address] [place] [address], tel:[phone] [facility] Encounter for dental exam and cleaning w/o abnormal findings 7 [facility]. [address] [place] [address], [id number], . tel:[phone] [facility], [address] [place] [address] 2,[address], [place], [id number], tel:[phone] [facility] Encounter for dental exam and cleaning w/o abnormal findings 3-201 6 [facility]. [address] [place] [address], [id number], . tel:[phone] [facility], [address] [place] [address] 2,[address], [place], [id number], tel:[phone] [facility] Encounter for dental exam and cleaning w/o abnormal findings 3- 6 No Information [facility], [address] [facility] [address], [place], [place], [id number], [place] tel:[phone] 22 [facility] Encounter for dental exam and cleaning w/o abnormal findings 8- 6 No Information [facility], [address] [facility] [address], [place], [place], [id number], [place] tel:[phone] [facility] examination Oct-0 3-201 4 No Information [facility], [address] [facility] [address], [place], [place], [id number], [place] tel:[phone] [facility] examination Sep-2 6- 4 No Information [facility], [address] [facility] [address], [place], [place], [id number], [place] tel:[phone] [facility] examination Sep-0 8- 4 No Information [facility], [address] [facility] [address], [place], [place], [id number], [place] tel:[phone] [facility] examination Feb-2 - 4 No Information [facility], [address] [facility] [address], [place], [place], [id number], [place] tel:[phone] [facility] examination Feb-0 5- 4 No Information [facility], [address] [facility] [address], [place], [place], [id number], [place] tel:[phone] 22 [facility] examination Jan-0 - 4 No Information [facility], [address] [facility] [address], [place], [place], [id number], [place] tel:[phone] 22 [facility] examination - 4 No Information [facility], [address] [facility] [address], [place], [place], [id number], [place] tel:[phone] 22 [facility] No Information 4 No Information Adelfo Goodwin [facility], [address] [facility] [address], [place], [place], [id number], tel:[phone] [facility] examination 4 No Information [facility]elfo Goodwin [facility], [address] [facility] [address], [place], [place], [id number], tel:[phone] [facility] examination 4 No Information Family History Family Member Type Diagnosis Age At Onset No Information Payers Payer name Insurance type Covered republican ID Debi nayak(s) [employer]ren [employer] [id number] Social History Type Description Quantity Date Captured Comments Sex Female Smoking Status No Information Sexual Orientation Straight or heterosexual Chief Complaint And Reason For Visit No Information Reason For Referral Reason For Referral No Information Plan Of Treatment Date Type Action Status Goal FIT-DNA. Due on due Goal CT-Colonography. Due on due Goal HPV. Due on due Goal Unhealthy drug use screening . Due on due Goal Zoster vaccine (). Due on due Goal FOBT. Due on due Goal Hepatitis C Screening. Due o n due Goal Document SOGI Information. D ue on due Goal Td vaccine. Due on 17 due Goal Tdap. Due on due Goal Colonoscopy. Due on 017 due Goal Influenza vaccine. Due on due Goal Lipid panel. Due on 017 due Goal Pap/HPV testing. Due on due Goal Mammogram. Due on 7 due Goal APE. Due on due Goal Diabetes Screening. Due on due Goal Td vaccine. Due on 16 due Goal Lipid panel. Due on due Goal Tdap. Due on due Goal APE. Due on due Goal Pap/HPV testing. Due on due Goal Colonoscopy. Due on due Goal Mammogram. Due on 6 due Goal PAP. Due on due Goal Influenza vaccine. Due on due History Of Present Illness Encounter Date Complaint History Of Prese nt Illness No Information Functional Status Date Functional Assessmen t No Information Instructions Date Instruction Additional Infor mation No Information Assessments Type Assessment Date No Information Patient Care Teams Name Effective Dates (start - stop) Status Members No Information
--- NOTE | ~2025-06-12 | US_ITS ---
EXAMINATION: US THYROID CLINICAL INFORMATION: Elevated TSH despite replacement, positive thyroglobulin antibody. COMPARISON: None available. TECHNIQUE: Linear transducer grayscale and color Doppler examination with attention to the region of the thyroid. FINDINGS: SIZE: Measurements of the thyroid lobes and nodules are given in sagittal, anteroposterior and transverse dimensions respectively. Right Thyroid Lobe: 2.5 x 0.7 x 0.7 cm, volume 0.6 mL. Parenchyma: The gland echotexture is mildly heterogeneous. Thyroid vascularity is normal. Left Thyroid Lobe: 2.3 x 0.8 x 0.8 cm, volume 0.8 mL. Parenchyma: The gland echotexture is mildly heterogeneous. Thyroid vascularity is normal. Isthmus: 0.13 cm in maximum AP dimension. There are no thyroid nodules present. NODES: No lymphadenopathy is seen in the tissue surrounding the thyroid gland. US/US thyroid IMPRESSION: 1. Small, mildly heterogeneous thyroid gland in keeping with thyroiditis. No discrete nodules present. Electronically signed by: Tj Parker MD 06/12/2025 04:38 PM [facility]
== END 2025-06-12 15:51 | disposition home or self-care (01) ==
LOC: HO.US 15:50
PROVIDERS: PCP Family Medicine; Visit Provider Family Medicine
DX: R63.4 Abnormal weight loss (principal); E03.9 Hypothyroidism, unspecified
CPT/HCPCS: 76536

== ENCOUNTER → 2025-06-12 15:53 | Outpatient (BNV) | payer OTHER, SELFPAY | PROVIDERS: PCP Family Medicine; Visit Provider Radiology Diagnostic Radiology | DX: R94.6 Abnormal results of thyroid function studies (principal) | CPT/HCPCS: 76536 ==

== ENCOUNTER 2025-06-29 13:22 | Outpatient (REF) | payer OTHER, SELFPAY ==
[2025-06-29 16:19] LABS: MANUAL DIFF FLAG NO
[2025-06-29 16:23] LABS: Appearance Urine Cloudy; Glucose Urine UA Negative (Negative); PH 5.5 (5.0-9.0); Specific Gravity - Urine 1.020 (1.005-1.025); UMIC TRIGGER UACC YES
[2025-06-29 16:37] LABS: Hematocrit 39.4 % (37.0-47.0); Hemoglobin 12.8 g/dl (12.0-16.0); Imm Gran Abs Auto 0.01 X10*3/uL (0.00-0.03); Imm Gran Pct Auto 0.1 % (0.0-0.4); Lymphocytes Absolute Auto 3.4 X10*3/uL (1.2-4.9); Mean Corpuscular HGB Conc 32.5 g/dl (31.0-35.0); Mean Corpuscular Hemoglobin 29.5 pg (27.0-33.0); Mean Corpuscular Volume 90.8 fL (80.0-98.0); NRBC Abs Auto 0.000 X10*3/uL (0.0-0.012); NRBC Pct Auto 0.0 /100WBC (0.0-0.2); Platelet Count 246 X10*3/uL (160-400); Red Blood Count 4.34 X10*6/uL (4.20-5.50); White Blood Count 7.3 X10*3/uL (4.8-10.8)
[2025-06-29 16:40] LABS: Alanine Aminotransferase 19 U/L (0-31); Albumin Level 4.2 g/dL (3.5-5.0); Alkaline Phosphatase 69 U/L (39-117); Anion Gap 9 (12-20); Aspartate Amino Transferase 22 U/L (5-31); Blood Urea Nitrogen 17 mg/dL (9-16); Calcium 9.6 mg/dL (8.4-10.2); Carbon Dioxide 30 mmol/L (22-29); Chloride 107 mmol/L (96-108); Estimated Glomerular Filt Rate > 60; Potassium 4.7 mmol/L (3.3-5.1); Sodium 141 mmol/L (135-145); Total Protein 7.1 g/dL (6.5-8.0)
[2025-06-29 16:50] LABS: UACC Culture Trigger YES
== END 2025-06-29 13:23 ==
LOC: HO.HHCL 13:22
PROVIDERS: Nurse Practitioner Primary Care; PCP Family Medicine; Visit Provider Student in an Organized Health Care Education/Training Program
DX: R41.82 Altered mental status, unspecified (principal); D72.829 Elevated white blood cell count, unspecified; Z21 Asymptomatic human immunodeficiency virus [HIV] infection status
CPT/HCPCS: 36415; 80053; 81001; 85025; 86359; 86360; 87086; 87536

== ENCOUNTER 2025-07-05 16:01 | Outpatient (REF) | payer OTHER, SELFPAY ==
--- OUTSIDE RECORDS SUMMARY | 2017-01-14 07:30 | XMS_ITS | Continuity of Care Document ---
Author Organization Adelfo [facility]cantar [facility] Address [address] [facility] [address] [place] [address] Phone Care Team Providers Care Tilt Wall Supervisor Name Role Phone Marcela CHEUNG, Yudelka North [...] First Film 017 Palliative (Emergency) Treatment Of [place] al Pain REPLACE BROKEN TOOTH/IMP Replace Missing [...] Diagnoses Date Provider Providers Copied on Encounter [facility], [address] [place] [address],[address], [address] [place] [address], tel:[phone] [facility] Encounter for dental exam and cleaning w/o abnormal findings 7 [facility]. [address] [place] [address], [id number], . tel:[phone] [facility], [address] [place] [address] 2,[address], [place], [id number], tel:[phone] [facility] Encounter for dental exam and cleaning w/o abnormal findings 3-201 6 [facility] [employer] [facility]. [address] [place] [address], [id number], . tel:[phone] [facility], [address] [place] [address] 2,[address], [place], [id number], tel:[phone] 22 [facility] Encounter for dental exam and cleaning w/o abnormal findings 3- 6 No Information [facility], [address] [facility] [address], [place], [place], [id number], [place] tel:[phone] 22 [facility] Encounter for dental exam and cleaning w/o abnormal findings 8- 6 No Information [facility], [address] [facility] [address], [place], [place], [id number], [place] tel:[phone] [facility] examination Oct-0 3-201 4 No Information [facility], [address] [facility] [address], [place], [place], [id number], [place] tel:[phone] [facility] examination Sep-2 6- 4 No Information [facility], [address] [facility] [address], [place], [place], [id number], [place] tel:[phone] 22 [facility] examination Sep-0 8- 4 No Information [facility], [address] [facility] [address], [place], [place], [id number], [place] tel:[phone] [facility] examination Feb-2 - 4 No Information [facility], [address] [facility] [address], [place], [place], [id number], [place] tel:[phone] [facility] examination Feb-0 5- 4 No Information [facility], [address] [facility] [address], [place], [place], [id number], [place] tel:[phone] 22 [facility] examination Jan-0 - 4 No Information [facility], [address] [facility] [address], [place], [place], [id number], [place] tel:[phone] 22 [facility] examination - 4 No Information [facility], [address] [facility] [address], [place], [place], [id number], [place] tel:[phone] 22 [facility] No Information 4 No Information [facility] Goodwin [facility], [address] [facility] [address], [place], [place], [id number], tel:[phone] 22 [facility] examination 4 No Information [facility] Goodwin [facility], [address] [facility] [address], [place], [place], [id number], tel:[phone] [facility] examination 4 No Information Family History Family Member Type Diagnosis Age At Onset No Information Payers Payer name Insurance type Covered alliance party ID Debi nayak(linsey) Eren [employer] ZZ [id number] Social History Type Description Quantity Date Captured [...] Td vaccine. Due on 16 due Goal Pap/HPV testing. Due on due Goal Colonoscopy. Due on 016 due Goal Mammogram. Due on 6 due Goal PAP. Due on due Goal Influenza vaccine. Due on due Goal APE. Due on [...]
--- NOTE | ~2025-07-05 | XR_ITS ---
EXAMINATION: XR LUMBOSACRAL SPINE CLINICAL INFORMATION: right sided low back pain COMPARISON: None available. TECHNIQUE: Three views of the lumbosacral spine. FINDINGS: There are surgical clips in right upper quadrant likely related to cholecystectomy. There is a clip that is near the dome of the liver that is probably a migrated clip. Moderate atherosclerotic calcifications are present in the abdominal aorta. There is stool and gas throughout the colon. There are 5 nonrib-bearing lumbar segments. Vertebral body height and alignment is preserved. There is mild disc space narrowing at L4-5 and L5-S1. XR/XR lumbar spine 2-3V IMPRESSION: Mild degenerative disc disease L4-5 and L5-S1. Electronically signed by: Lele Huston MD 07/05/2025 04:33 PM [facility]
== END 2025-07-05 16:02 | disposition home or self-care (01) ==
LOC: HO.HHCX 16:01
PROVIDERS: PCP Nurse Practitioner; Visit Provider Nurse Practitioner
DX: M54.50 Low back pain, unspecified (principal)
CPT/HCPCS: 72100

== ENCOUNTER → 2025-07-05 16:09 | Outpatient (BNV) | payer OTHER, SELFPAY | PROVIDERS: PCP Nurse Practitioner; Visit Provider Radiology Diagnostic Radiology | DX: M51.370 Other intervertebral disc degeneration, lumbosacral region with discogenic back pain only (principal) | CPT/HCPCS: 72100 ==

== ENCOUNTER 2025-07-06 11:40 | Outpatient (REF) | payer OTHER, SELFPAY ==
[2025-07-06 14:58] LABS: Anion Gap 12 (12-20); Blood Urea Nitrogen 15 mg/dL (9-16); Calcium 9.9 mg/dL (8.4-10.2); Carbon Dioxide 28 mmol/L (22-29); Chloride 107 mmol/L (96-108); Estimated Glomerular Filt Rate 53; Magnesium 2.0 mg/dL (1.6-2.6); Potassium 4.4 mmol/L (3.3-5.1); Sodium 143 mmol/L (135-145)
== END 2025-07-06 11:41 | disposition home or self-care (01) ==
LOC: HO.HHCL 11:40
PROVIDERS: PCP Family Medicine; Visit Provider Nurse Practitioner
DX: M79.604 Pain in right leg (principal)
CPT/HCPCS: 36415; 80048; 82550; 83735

== ENCOUNTER 2025-07-11 06:45 | Outpatient (REF) | payer OTHER, SELFPAY ==
--- NOTE | ~2025-07-11 | CT_ITS ---
EXAMINATION: CT CHEST WITH IV CONTRAST, CT ABDOMEN PELVIS WITH IV CONTRAST INDICATION: PAIN, EVAL FOR PRIMARY AND METASTATIC CANCER, PT HAS HIV COMPARISON: There are no prior studies available for comparison.. TECHNIQUE: CT scan of the chest, abdomen and pelvis was performed following administration of 85 mL Omnipaque 350 using standard departmental protocol. Coronal and sagittal reformatted images were generated and reviewed. The patient received oral contrast material. This CT exam was performed with one or more of the following dose reduction techniques: automated exposure control, adjustment of the mA and/or kV according to patient size, use of iterative reconstruction technique. DLP: 436 mGy-cm CHEST: The examination is degraded by patient motion. THYROID: The thyroid is unremarkable. LUNGS: The lungs are clear. MEDIASTINUM: There is no mediastinal lymphadenopathy. JORDANA: There is no hilar lymphadenopathy. CARDIOVASCULATURE: The heart is normal in size. There is no pericardial effusion. The thoracic aorta is normal in caliber. DEGREE OF CORONARY CALCIFICATION: not evaluable, due to dense contrast in the coronary arteries PLEURA: There is no pleural effusion. No pneumothorax. MAIN AIRWAYS: The mainstem bronchi and proximal branches are patent. AXILLA: There is no axillary lymphadenopathy. SOFT TISSUES: Unremarkable. BONES: The bones are intact. ABDOMEN: LIVER: The liver is normal in size and contour. No liver mass is identified. The hepatic and portal veins are patent. GALLBLADDER / BILE DUCTS: The gallbladder is surgically absent. There is no intra or extrahepatic biliary ductal dilatation. SPLEEN: The spleen is normal in size. No focal splenic lesion is identified. PANCREAS: The pancreas is unremarkable in appearance. ADRENAL GLANDS: Within normal limits. KIDNEYS/RETROPERITONEUM: No renal calculi are identified. There is no hydronephrosis. No renal masses are identified. LYMPH NODES: No abdominal or pelvic lymphadenopathy. VASCULATURE: The abdominal aorta demonstrates atherosclerotic calcification, but is normal in caliber. MESENTERY/PERITONEUM: No free fluid. No masses. There is no free intraperitoneal gas. STOMACH: The stomach is unremarkable. SMALL BOWEL: The small bowel is normal in caliber. COLON: There is a large amount of stool throughout the colon. APPENDIX: Normal. URINARY BLADDER/PELVIC ORGANS: The urinary bladder is unremarkable. The uterus is unremarkable. BONES / SOFT TISSUES: There is avascular necrosis of both femoral heads. CT/CT abdomen pelvis w IV con IMPRESSION: 1. No evidence of malignancy in the chest, abdomen, or pelvis. 2. Large amount of stool throughout the colon. 3. Avascular necrosis of both femoral heads. Electronically signed by: Seth Hdz MD 07/11/2025 09:55 AM [facility]
[2025-07-11] MEDS: iohexoL 350 MG/ML 100 ML INFUS..BTL IV (09:44)
[2025-07-11] MEDS: Barium Sulfate Oral (Mocha) 450 ML ORAL.SUSP 900 ML PO (09:44)
== END 2025-07-11 06:46 ==
LOC: HO.CT 06:45
PROVIDERS: PCP Family Medicine; Visit Provider Family Medicine
DX: R93.6 Abnormal findings on diagnostic imaging of limbs (principal); R10.31 Right lower quadrant pain; M54.9 Dorsalgia, unspecified; M25.559 Pain in unspecified hip
CPT/HCPCS: 71260; 74177; Q9967

== ENCOUNTER → 2025-07-11 06:48 | Outpatient (BNV) | payer OTHER, SELFPAY | PROVIDERS: PCP Family Medicine; Visit Provider Radiology Diagnostic Radiology | DX: R10.9 Unspecified abdominal pain (principal); R07.9 Chest pain, unspecified; R93.6 Abnormal findings on diagnostic imaging of limbs; Z21 Asymptomatic human immunodeficiency virus [HIV] infection status | CPT/HCPCS: 71260; 74177 ==